=== PATIENT | female | born 1960 | race Caucasian/White ===

== ENCOUNTER 2025-06-10 15:15 | Outpatient (AMB) | payer OTHER, SELFPAY ==
--- NOTE | 2025-06-10 15:20 | MHC.OFFVIS ---
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 Since some of the surgery in 1920 07/31 she has had loud vocal tics and burps which she calls hiccups. These have gotten worse in the last year very frequent especially with she is nervous or worked up or talking about it. When she is relaxed on her recliner they decrease in frequency and they stopped completely for 6-7 hours once she falls asleep. They start as soon as she gets up. 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 She finds it embarrassing. She has been tried on gabapentin, tizanidine and baclofen for symptomatic treatments without success. She takes citalopram for her depression. [facility] Medical History (Updated 06/10/25 @ 15:42 by Marry Bob MD) Hiccough Review of Systems Neuro Details: Frequent vocal tics and burping versus hiccups Physical Exam Neuro Other: ?Mini Mental Status Exam Level of Consciousness:?Alert.? Orientation:?Knows correct year, month, date, day and season.?Knows correct city, county and state. Knows correct location and floor.? Registration:?Able to register 3 objects.? Attention:?Serial 7's performed accurately.? Recall:?Able to recall 3 out of 3 objects.? Language:?Normal spontaneous speech, fluency, repetition, naming, comprehension, reading, and writing.? Total Score:?30/30.? Neurological Abnormal neurological findings:??Frequent loud vocal tics with occasional burping tics, or a combination of the 2, sometimes associated with lower facial grimacing that gets suppressed by distraction.? Mental Status:?Alert and oriented X 3.?Normal attention, orientation, memory, and affect.? Cranial Nerves:?Pupils are equal, round and reactive to light. Fundoscopy shows normal disc bilaterally. External occular muscles are intact. Visual foreman are full, no ptosis. Face is symmetrical, no facial weakness or droop. Facial sensations are normal. Tongue protrudes in midline. Palate elevates symmetrically. Shoulder shrugging is normal.? Motor Examination:?Normal muscle tone, bulk and strength.?No atrophy or fasciculations.?No drift of the extended upper extremities.?Deep tendon reflexes are 2+.?Plantars are flexor.? Motor Strength:? Proximal Muscles (out of 5):?5 Distal Muscles (out of 5):?5 Neck Flexors (out of 5):?5 Neck Extensors (out of 5):?5 Deltoid (out of 5):?5 Biceps (out of 5):?5 Triceps (out of 5):?5 Serratus Anterior (out of 5):?5 Wrist Extensors (out of 5):?5 APB (out of 5):?5 Finger Spread (out of 5):?5 Ileopsoas (out of 5):?5 Quadriceps (out of 5):?5 Hamstrings (out of 5):?5 Tibialis Anterior (out of 5):?5 Peronei (out of 5):?5 EDB (out of 5):?5 Gastrocnemius (out of 5):?5 Straight Leg Raising:?90 degrees.? Sensory Exam:?Normal light touch, temperature, pinprick, vibration and joint-position sensations.?Rhomberg sign is absent.? Coordination:?No ataxia,?no titubation,?bloxqk-mz-jifa, debu-qvxv-vprl test, and rapid alternating movements were normal.? Gait Exam:?Within normal limits.? Cerebellar Signs:?Nmqgnd-eh-riob and xbbh-vb-lzle is normal.?No dysdiadochokinesia.? Extrapyramidal System:?No tremor or?rigidity, normal facial expressions.?No bradykinesia. No bradyphrenia. Normal arm swing and posture. No propulsion or retropulsion.? Speech:?Normal,?no dysphasia or dysarthria.? General Examination GENERAL APPEARANCE:??normal,?in no acute distress?,?normal,?in no acute distress.? HEAD:??normocephalic,?atraumatic.? EYES:??sclera non-icteric,?conjunctiva clear.? EARS:??auditory canal clear,?tympanic membrane intact, clear.? NOSE:??no lesions.? ORAL CAVITY:??gums normal,?mucosa moist,?no lesions.? THROAT:??clear.? NECK/THYROID:??no cervical lymphadenopathy,?thyroid normal,?neck supple, full range of motion,?no carotid bruit.? SKIN:??no rashes,?no significant birthmarks.? HEART:??S1, S2 normal,?no murmurs?,?S1, S2 normal,?no murmurs.? LUNGS:??clear anteriorly and posteriorly?,?clear anteriorly and posteriorly.? CHEST:??no gross rib deformity,?clear to auscultation.? BACK:??normal exam of spine.? MUSCULOSKELETAL:??normal.? EXTREMITIES:??no edema?,?no edema.? PERIPHERAL PULSES:??normal.? PSYCH:??alert, oriented,?cognitive function intact,?cooperative with exam?,?alert, oriented,?cognitive function intact,?cooperative with exam.? Assessment & Plan Assessment & Plan (1) Motor and vocal tic disorder: Code(s): F95.2 - Tourette's disorder Category: Medical Plan Stop Baclofen and Gabapentin. Start Clonidine 0.1mg and Haloperidol 0.5 mg and titrate up the dose in a week to 2 of each at bedtime. Call in 2-3 weeks to let us know what impact it has had on her tics Medications: New haloperidol 0.5 mg orally 1 tab hs for 1 week then 2 hs; 60 tabs 3RF clonidine HCl 0.1 mg orally 1 hs for 1 week then 1 bid; 60 tabs 3RF Coding Level of Care Code New Pt Level 5 (25887) Diagnoses Motor and vocal tic disorder F95.2
--- OUTSIDE RECORDS SUMMARY | 2025-06-10 16:57 | XMS_ITS | Encounter Summary ---
Author Organization [facility] Address [address] [place] [address] Care Team Providers Care Cad Technician Name Role Phone Gio Muñoz Primary Care Provider [phone] Encounter Details Date Type Department Care Team (Late st Contact Info) Description 09/25/[address] [facility] Interventional Radiology [address] [place] [address] Nida Culp MD [address] [place] [id number] Social History Tobacco Use Types Packs/Day Years Used Date Smoking Tobacco: Never Smokeless Tobacco: Never Comments:: Alcohol Use Standard Drinks/Week Comments Not Currently 0 (1 standard drink = 0.6 oz pur e alcohol) Comments No Sex and Gender Information Value Date Recorded Sex Assigned at Female 08/03/2020 9:46 AM EST Legal Sex Female 6:54 PM EDT Gender Identity Female 08/03/2020 9:46 AM EST Sexual Orientation Straight 08/03/2020 9: 46 AM EST documented as of this encounter Plan of Treatment Not on file documented as of this encounter Visit Diagnoses Not on filedocumented in this encounter Care Teams Cad Technician Relationship Specialty Start Date End Date Gio Muñoz [address] [facility] [address] [place] [phone] PCP - General 01/26/17 documented as of this encounter
--- OUTSIDE RECORDS SUMMARY | 2025-06-10 16:58 | XMS_ITS | Clinical Summary ---
Author Organization [facility] Address [address] [place] [address] Care Team Providers Care Tank Truck Engine Mechanic Name Role Phone Gio Muñoz Primary Care Provider Allergies No known active allergies Medications chlorthalidone (HYGROTEN) 25 mg tablet Take 25 mg by mouth daily. Active citalopram (CeleXA) 20 mg tablet Take 20 mg by mouth daily. Active melatonin tablet Take 10 mg by mouth nightly. Active fluticasone (FLONASE) 50 mcg/actuation nasal spray Administer 1 spray into each nostril daily. Active vitamin D3 25 mcg (1,000 unit) capsule Take 4,000 Units by mouth once a day. Active bismuth subsalicylate (PEPTO BISMOL) 262 mg/15 mL suspension Take 15 mL by mouth every 6 hours as needed for indigestion. Active Lactobacillus acidophilus 2 billion cell tablet Take 1 tablet by mouth daily. Active lansoprazole (PREVACID) 30 mg capsule Take 15 mg by mouth daily. Active meloxicam (MOBIC) 15 mg tablet Take 15 mg by mouth daily. Active turmeric (CURCUMIN MISC) Take by mouth daily. Active magnesium 250 mg tablet Take 500 mg by mouth. Active fish oil 340-1,000 mg capsule Take 1,000 mg by mouth daily. Active biotin 1 mg capsule Take 1 tablet by mouth daily. Active vitamin E 400 unit capsule Take 400 Units by mouth once a day. Active milk thistle 150 mg capsule Take by mouth. Acti ve simethicone (MYLICON) 80 mg chewable tablet Chew and swallow 80 mg by mouth every 6 hours as needed for flatulence. Active hydrocortisone 2.5% cream 1 Active acetaminophen (TYLENOL) 325 mg tablet Take 2 tablets (650 mg total) by mouth every 6 hours. 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/2018): Added automatically from request for surgery [id number] Foot pain 12/14/2017 Plantar fasciitis 12/14/2017 Hyperplastic polyp of stomach 04/20/2017 Colon polyp 04/20/2017 Iron deficiency anemia due to chronic blood loss 04/07/2017 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 Iron deficiency anemia 05/18/2015 Immunizations Immunization Administration Dates Next Due Covid-19, Pfizer, mRNA, O'Brien valent, PF 30 mcg/0.3 mL dose (for ages 12 and older) 11/25/2020,11/04/2020 Family History Medical History Relation Name Comments Heart disease Father Hypertension Father Stroke Father Cancer Mother Lung cancer Mother Relation Name Status Comments Father Alive CABG x 3 Mother Son Other mild PJS Social History Tobacco Use Types Packs/Day Years Used Date Smoking Tobacco: Never Smokeless Tobacco: Never Comments:: Alcohol Use Standard Drinks/Week Comments Not Currently 0 (1 standard drink = 0.6 oz pur e alcohol) maybe one a year Comments No Sex and Gender Information Value Date Recorded Sex Assigned at Female 08/03/2020 9:46 AM EST Legal Sex Female 6:54 PM EDT Gender Identity Female 08/03/2020 9:46 AM EST Sexual Orientation Straight 08/03/2020 9: 46 AM EST Last Filed Vital Signs Vital Sign Reading Time Taken Comments Blood Pressure 135/90 10/22/2021 11:37 AM EDT Pulse 83 10/22/2021 11:37 AM EDT Temperature 36.9 C (98.4 F) 10/22/2021 11:37 AM EDT Respiratory Rate 16 10/22/2021 11:37 AM EDT Oxygen Saturation 95% 10/22/2021 11:37 AM EDT Inhaled Oxygen Concentration - - Weight 89.6 kg (197 lb 8.5 oz) 10/18/2021 6:48 A M EDT Height 157.5 cm (5' 2 ) 10/18/2021 6:48 AM EDT Body Mass Index 36.13 10/18/2021 6:48 AM EDT Plan of Treatment Health Maintenance Due Date Last Done Comments Cervical Cancer Screening 1960 HIV Screening 1960 HPV and Pap Smear 1960 Pap Smear 1960 Mammogram 2001 Pneumococcal Vaccine: 50+ Years (1 of 1 - PCV) 2011 Colonoscopy 04/11/2022 04/11/2019, 09/2018, 04/11/2019, Additional history exists Alcohol/Substance Use Screening 07/10/2024 Influenza Vaccine (#1) 2025 , 02/29/2020, 04/19/2018, Additional history exists COVID-19 Vaccine (3 - season) 2025 11/25/2020, 11/04/2020 Gastroscopy (EGD) 10/03/2025 10/04/2023, , 08/06/2020, Additional history exists DTaP,Tdap,and Td Vaccines (4 - Td or Tdap) 03/30/2031 03/30/2021, 11/28/2017, 04/21/2011, Additional history exists RSV Vaccine (60+ years old and patients) (1 - 1-dose 75+ series) 2036 Zoster Vaccines Completed 03/30/2021, 04/10, 02/26/2019, Additional history exists Hepatitis B Vaccines Aged Out No long er eligible based on patient's age to complete this topic Procedures * Due to [place] state law, this organization might not be sharing negative HIV tests. Procedure Name Priority Date/Time Associated Diagnosis Comments HM UPPER ENDOSCOPY (EGD EXTERNAL) 10/04/2023 COLONOSCOPY 04/11/2019 from Last 3 Months or Most Recently Relevant to Health Maintenance Results * Due to [place] state law, this organization might not be sharing negative HIV tests. * HM UPPER ENDOSCOPY (EGD EXTERNAL) (10/04/2023) 10/04/2023 us Onbase Scan [facility] Final Resu lt * COLONOSCOPY (04/11/2019) Narrative Procedure Note Cortez Mosquera MD - 04/11/2019 3:14 PM EDT Gastroenterology Patient Name: Mariel Malone Procedure Date: 04/11/2019 3:14 PM Date of : 1960 Admit Type: Outpatient Age: 58 Room: [place] [address] Gender: Female Note Status: Finalized Attending MD: Cortez Mosquera MD Procedure: Colonoscopy Indications: High risk colon cancer surveillance: Personal history of familial adenomatous polyposis Comorbidities Providers: Cortez Mosquera MD, Coretta Osborne (Fellow), Patricia Galindo (Fellow) Referring MD: Gio Conte MD (Referring MD) Requesting Provider: Medicines: General Anesthesia Complications: No immediate complications. Estimated Blood Loss: Estimated blood loss: none. Procedure: After I obtained informed consent, the scope was passed under direct vision. Throughout the procedure, the patient's blood pressure, pulse, and oxygen saturations were monitored continuously. The Colonoscope was introduced through the anus and advanced to the cecum, identified by appendiceal orifice and ileocecal valve.The colonoscopy was performed without difficulty. Thepatient tolerated the procedure well. The quality of the bowel preparation was good. The bowel preparation used was CoLyte. Findings: The perianal and digital rectal examinations were normal. Pertinent negatives include normal sphincter tone. A 6 mm polyp was found in the descending colon. The polyp wassessile. The polyp was removed with a cold biopsy forceps. Resection and retrieval were complete. Seven sessile polyps were found in the sigmoid colon. The polyps were4 to 12 mm in size. These polyps were removed with a hot snare.Resection and retrieval were complete. A 6 mm polyp was found in the rectum. The polyp was sessile. Thepolyp was removed with a hot snare. Resection and retrieval werecomplete. Multiple sessile polyps were found in the sigmoid colon, descending colon, splenic flexure and ascending colon. The polyps were small in size. Polypectomy was not attempted. Impression: - One 6 mm polyp in the descending colon, removed witha cold biopsy forceps. Resected and retrieved. - Seven 4 to 12 mm polyps in the sigmoid colon, removed with a hot snare. Resected and retrieved. - One 6 mm polyp in the rectum, removed with a hotsnare. Resected and retrieved. - Multiple small polyps in the sigmoid colon, in the descending colon, at the splenic flexure and in the ascending colon. Resection not attempted. Recommendation: - Repeat colonoscopy date to be determined afterpending pathology results are reviewed for surveillance. - Await pathology results. - Telephone endoscopist for pathology results in 1week. Cortez Mosquera MD 04/11/2019 5:55:19 PM This report has been signed electronically. Number of Addenda: 0 Note Initiated On: 04/11/2019 3:14 PM us Cortez Mosquera MD PROVATION PROCEDURES Final Resu lt from Last 3 Months or Most Recently Relevant to Health Maintenance [place] [id number] [facility] Advance Directives Documents on File Type Date Recorded Patient Tobacco Roller Expl anation Health Care Proxy 09/29/2016 12:00 AM 08/30 Health Care Proxy 08/11/2016 12:00 AM Healt h Care Proxy * Full Code (Latest Code Status on File) Date Activated Date Inactivated Comments 10/18/2021 12:35 PM 10/22/2021 5:17 PM * Full Code Date Activated Date Inactivated Comments 10/18/2021 6:48 AM 10/18/2021 12:35 PM Care Teams Tank Truck Engine Mechanic Relationship Specialty Start Date End Date Gio Muñoz [address] [facility] [address] [place] [phone] PCP - General 01/26/17
--- OUTSIDE RECORDS SUMMARY | 2025-06-10 16:58 | XMS_ITS | Encounter Summary ---
Author Organization [facility] Address [address] [place] [address] Care Team Providers Care Employee Communications Manager Name Role Phone Gio Muñoz Primary Care Provider [phone] Encounter Details Date Type Department Care Team ([facility] st Contact Info) Description 09/07/2021 [facility] Message [facility] PB Revenue Cycle Management [address] [place] [id number] Mychart, Generic Provider [address] [place], [place] [id number] Payment Plan Social History Tobacco Use Types Packs/Day Years [...] on filedocumented in this encounter Care Teams Employee Communications Manager Relationship Specialty Start Date End Date Gio Muñoz [address] [facility] [address] [place] [phone] PCP - General 01/26/17 documented as of this encounter
--- OUTSIDE RECORDS SUMMARY | 2025-06-10 16:58 | XMS_ITS | Encounter Summary ---
Author Organization [facility] Address [address] [place] [address] Care Team Providers Care Stamping Bench Die Maker Name Role Phone Gio Muñoz Primary Care Provider [phone] Encounter Details Date Type Department Care Team (Late st Contact Info) Description 03/31/2020 Orders Only [facility] 2 Rad Act [address] [place] [address] Sai Knox MD [address] [place] [address] Social History Tobacco Use Types Packs/Day Years Used Date Smoking Tobacco: Never Smokeless Tobacco: Never Comments:: Alcohol Use Standard Drinks/Week Comments Yes 0 (1 standard drink = 0.6 oz pur e alcohol) socially Comments No Sex and Gender Information Value [...] on filedocumented in this encounter Care Teams Stamping Bench Die Maker Relationship Specialty Start Date End Date Gio Muñoz [address] [facility] [address] [place] [phone] PCP - General 01/26/17 documented as of this encounter
--- OUTSIDE RECORDS SUMMARY | 2025-06-10 16:58 | XMS_ITS | Continuity of Care Document ---
Author Organization [facility], Main Office Address [address] [facility] [address] [place] [phone] Care Team Providers Care Lawn Service Worker Name Role Phone GIO STARKEY Primary Care Provider GUICHO GRAFF Hematology/Oncology HOANG STALLWORTH Windmill Mechanic AMY ESPINOZA Breast Surgeon HUA WILKERSON General Surgeon BHAVNA GRAY Hematology/Oncology [phone] SYD BROOKS Oncology Rep Specialist [facility] Correctional Supply Supervisor EDMOND RUIZ Auto Accessories Installer JEREMY PEREZ Breast Surgeon SJ AGUIRRE Wrapper Layer ISMAEL PORTER Design Eng Assessment No assessment recorded. Plan of Treatment Reminders Order Date Submit Date Provider Last Modified By Organization Details Last Modified Time Details Appointments FOLLOW UP 2024 02:45P M Gio Starkey MD Not available Not available Not available Lab None record ed. Referral neurol ogist referr al 2024 025 tyshawn Alston MD, [address] [place] [address] Miguel Mustafa, [place], [address], 05/13/2025 13:48:56 Procedures None record ed. Surgeries None record ed. Imaging None record ed. Medication Orders gabape ntin 100 mg capsul e 2024 025 [id number], [address] [place], [address], 03/27/2025 16:35:46 diphen oxylat e-atro pine 2.5 mg-0.0 25 mg tablet 2024 025 [id number], [address] [place], [address], 03/27/2025 16:35:47 amlodi pine 2.5 mg tablet 2024 [id number] [address] [place], [address], 04/22/2025 16:10:42 Patient TargetsNo targets recorded. Patient Instructions Encounter Date Encounter Id Patient Instructions Last Modified By Organization Details Last Modified Time 03/27/2025 [id number] high blood pressure: care instructions awychowski Not available 03/27/2025 16:35:44 learning about high blood pressure awychowski Not available 03/27/2025 16:35:44 Reason for Referral Neurologist Referral for Chr onic hiccup Referring Physician: Gio Starkey, Family Medicine, Encounter Date: 03/27/2025 Problems Name Problem SNOMED Code Status Onset Date Resolution Date Notes Provider Name and Address Organization Details Recorded Time Hypercho lesterol emia 55397347 Active 9.20 - ascvd risk 4.3% [facility]ER[facility]NDO [facility], [facility] 2 11:33:56 Foot pain 13475359 Completed 03/02/2015 Gio Starkey MD [address] [facility] [address], [place], [address] , [facility] 3 14:47:22 Osteopen ia 298740560 Completed 03/21/2018 Gio Starkey MD [address] [facility] [address], [place], [address] , [facility] 8 08:11:10 Body mass index 30+ - obesity 570878277 Completed 02/25/2019 Gio Starkey MD [address] [facility] [address], [place], [address] , [facility] 5 09:16:34 Proteinu roas 28685472 Completed 09/08/2022 Gio Starkey MD [address] [facility] [address], [place], [address] , [facility] 3 14:48:29 Disorder of skin 37167926 Completed 02/25/2019 Gio Starkey MD [address] [address], [place], [address] , [facility] 9 15:42:08 Patient status finding [id number] Completed 201201/21/2014 RECORDED 03/07/20 13 9:11AM BY CAPRI SOL MA, MARRYATI ON/ADDMIKE Starkey MD [address] [facility] [address], [place], [address] , [facility] 6 22:20:54 Influenz a vaccine needed [id number] 06 Completed 201201/21/2014 RECORDED 03/07/20 13 9:11AM BY CAPRI SOL MA, SARAH ON/JEREMIAH Starkey MD [address] [facility] [address], [place], [address] , [facility] 6 22:20:54 Screenin g for malignan t neoplasm of breast Completed 201201/21/2014 RECORDED 03/07/20 13 9:11AM BY CAPRI SOL MA, SARAH ON/JEREMIAH Starkey MD [address] [facility] [address], [place], [address] , [facility] 6 22:20:54 Renewal of prescrip tion Completed 201201/21/2014 RECORDED 03/07/20 13 9:11AM BY CAPRI SOL MA, SARAH ON/JEREMIAH Starkey MD [address] [facility] [address], [place], [address] , [facility] 6 22:20:54 Pain of joint of wrist Completed 201201/21/2014 RECORDED 03/07/20 13 9:11AM BY CAPRI SOL MA, SARAH ON/JEREMIAH Starkey MD [address] [facility] [address], [place], [address] , [facility] 6 22:20:54 Patient status finding [id number] Completed 201202/17/2014 RECORDED 03/07/20 13 9:11AM BY CAPRI SOL MA, SARAH ON/JEREMIAH Starkey MD [address] [address], [place], [address] , [facility] 6 22:20:54 Renewal of prescrip tion Completed 201202/17/2014 RECORDED 03/07/20 13 9:11AM BY CAPRI SOL MA, SARAH ON/JEREMIAH Starkey MD [address] [address], [place], [address] , [facility] 6 22:20:54 Pain of joint of wrist 982900186 Completed 201202/17/2014 RECORDED 03/07/20 13 9:11AM BY CAPRI SOL MA, SARAH ON/JEREMIAH Starkey MD [address] [address], [place], [address] , [facility] 6 22:20:54 Child attentio n deficit disorder 367575321 Completed 201301/21/2014 STORY: JULIO CÉSAR BAUMAN; IMPRESSI ON: DOING WELL AND FOLLOWED BY PSYCH.; RECORDED 10/29/19 14 9:56AM BY GIO Willard MD, ANNOTATI ON/ADDEN DUM Gio Starkey MD [address] [facility] [address], [place], [address] , [facility] 6 22:20:54 Constipa tion 83286005 Active 2013 FERNANDO Johnson, [facility] 2 11:33:56 Adult health examinat ion Completed 201301/21/2014 IMPRESSI ON: IMMUNIZA TION STATUS UTD WILL SCREEN BASED ON RISK FACTORS. REGULAR DENTAL CARE AND SEATBELT USE ADVISED. DISTRACT ED DRIVING DISCUSSE D. ROUTINE SURVEY TECHNICIAN CARE AND COLONOSC OPY UTD.; RECORDED 10/29/19 14 9:17AM BY CAPRI SOL MA, ANNOTATI ON/ADDEN DUM Gio Starkey MD [address] [facility] [address], [place], [address] , [facility] 6 22:20:54 Gastroes ophageal reflux disease 876760911 Active 2013 FERNANDO Johnson, [facility] 2 11:33:56 Essentia l hyperten nixon 67069580 Active 2013 FERNANDO Johnson, [facility] 2 11:33:56 Anemia due to chronic blood loss 502590390 Active 2013 FERNANDO Johnson, [facility] 2 11:33:56 Obesity 058771734 Completed 201308/10/2016 IMPRESSI ON: POTENTIA L ADVERSE HEALTH CONSEQUE NCES DISCUSSE D AND UNDERSTO OD. INCREASE D PHYSICAL ACTIVITY AND HEALTHIE R DIETARY HABITS ADVISED. ; RECORDED 10/29/19 14 9:33AM BY CAPRI SOL MA, OFFICE VISIT Gio Starkey MD [address] [facility] [address], [place], [address] , [facility] 3 14:47:52 Disorder of bone and articula r cartilag e 364422349 Completed 201308/10/2016 DATE: 10/29/19 14; ; RECORDED 11/01/19 14 12:48PM BY GIO Willard MD, HISTORIC AL SUMMARY Gio Starkey MD [address] [facility] [address], [place], [address] , [facility] 7 15:24:03 Congenit al disease 42597393 Completed 201303/21/2018 IMPRESSI ON: FOLLOWED BY GI; RECORDED 10/29/19 14 9:33AM BY CAPRI SOL MA, OFFICE VISIT Gio Starkey MD [address] [facility] [address], [place], [address] , [facility] 8 08:13:12 All[facility]initis 84748525 [facility] 11:33:[facility] Heterozy gous thalasse rashida 75282856 Active 2013 [facility] 11:33:56 Child attentio n deficit disorder 203647206 Completed 201302/17/2014 STORY: JULIO CÉSAR BAUMAN; IMPRESSI ON: DOING WELL AND FOLLOWED BY PSYCH.; RECORDED 10/29/19 14 9:56AM BY GIO Willard MD, ANNOTATI ON/ADDEN DUM Gio Starkey MD [address] [facility] [address], [place], [address] , [facility] 6 22:20:54 Screenin g for malignan t neoplasm of cervix Completed 201303/02/2015 RECORDED 11/08/19 14 11:07AM BY MICHELLE TOBAR, HISTORIC AL SUMMARY Gio Starkey MD [address] [facility] [address], [place], [address] , [facility] 6 22:20:54 Swelling of limb 11918202 Completed 201302/25/2019 Gio Starkey MD [address] [facility] [address], [place], [address] , [facility] 9 15:41:51 Screenin g for malignan t neoplasm of breast Completed 201303/02/2015 RECORDED 11/13/19 14 1:04PM BY MICHELLE TOBAR, HISTORIC AL SUMMARY Gio Starkey MD [address] [facility] [address], [place], [address] , [facility] 6 22:20:54 Disorder of breast 79419981 Completed 201303/21/2018 RECORDED 11/15/19 14 9:20AM BY FERNANDO DELCID, HISTORIC AL SUMMARY Gio Starkey MD [address] [facility] [address], [place], [address] , [facility] 8 08:13:07 Mammogra phy abnormal 332808830 Active 2013 STORY: LEFT, S/P BX AND CLIP PLACEMEN T-FIBROC YSTIC DISEASE/ PASH; FERNANDO Johnson, [facility] 2 11:33:56 Breast lump 85024812 Completed 201308/10/2016 RECORDED 12/18/19 14 3:27PM BY GIO Willard MD, ANNOTATI ON/ADDEN DUM Gio Starkey MD [address] [facility] [address], [place], [address] , [facility] 7 15:25:07 Fibrocys tic disease of breast 12889034 Active 2013 FERNANDO Johnson, [facility] 2 11:33:56 Iron deficien cy anemia 09467241 Completed 201405/18/2015 Gio Starkey MD [address] [facility] [address], [place], [address] , [facility] 5 09:33:51 Neurocut aneous syndrome 43119247 Completed 201405/18/2015 FERNANDO Johnson, [facility] 2 11:33:56 Hepatiti s C antibody detected 239607132 Active 2016 FERNANDO Johnson, [facility] 2 11:33:56 Osteoart hritis of joint of hand 46267596 Active 2016 FERNANDO Johnson, [facility] 2 11:33:55 Iron deficien cy anemia due to blood loss 744568441 Completed 201611/25/2024 Gio Starkey MD [address] [facility] [address], [place], [address] , [facility] 5 09:33:38 Polyp of colon 27111648 [facility] 08:54:30 Gastric polyp 03636256 Active 2016 [facility] 08:54:30 Plantar fasciiti s 698096369 Completed 201709/08/2022 Gio Starkey MD [address] [facility] [address], [place], [address] , [facility] 3 14:47:59 Foot pain 75371496 Completed 201709/08/2022 Gio Starkey MD [address] [facility] [address], [place], [address] , [facility] 3 14:47:22 Bilatera l plantar fasciiti s [id number] 341496 Completed 201709/08/2022 Gio Starkey MD [address], [place], [address] , [facility] 3 14:44:05 Tendinit is of foot 621778537 Completed 201702/15/2018 sheryl corey Starkey MD [address], [place], [address] , [facility] 8 08:57:59 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 CatherineFERNANDO Gillette, [facility] 2 11:33:55 Osteoart hritis 083796910 Active 2017 FERNANDO Johnson, [facility] 2 11:33:56 Insomnia 136285070 Active 2018 FERNANDO Johnson, [facility] 2 11:33:56 Liver enzymes level above referenc e range 094616263 Completed 201804/06/2021 Gio Starkey MD [address] [facility] [address], [place], [address] , [facility] 1 13:00:07 Complain ing of - melena Completed 201909/08/2022 Gio Starkey MD [address], [place], [address] , [facility] 3 14:45:36 Excessiv e belching 456993193 Completed 201909/08/2022 Gio Starkey MD [address], [place], [address] , [facility] 3 14:47:12 Depressi ve disorder 89449588 Active 2019 FERNANDO Johnson, [facility] 2 11:33:55 Steatoti c liver disease 709930087 Active 2020 Catherine Bradley MA null, [facility] 2 11:33:56 Cholelit hiasis without obstruct ion 11764693 Active 2020 Catherine Bradley MA null, [facility] 2 11:33:56 Gallston e 836041753 Active 2020 aCtherine Bradley MA null, [facility] 2 11:33:56 Electroc ardiogra m abnormal 202782050 Active 2020 FERNANDO Johnson, [facility] 2 11:33:56 Mitral valve regurgit ation 77166176 Active 2020 trivial FERNANDO Johnson, [facility] 2 11:33:56 Intussus ception of colon 33105775 Completed 202109/08/2022 Gio Starkey MD [address], [place], [address] , [facility] 3 14:47:33 Osteopor osis 25801992 Active 2021 FERNANDO Johnson, [facility] 2 11:33:56 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, needs regular GI/pancr eatic cancer screenin gMarii Starkey MD [address], [place], [address] , [facility] 4 12:40:42 Obese class II 59082849968 4105 Completed 202109/08/2022 Gio Starkey MD [address], [place], [address] , [facility] 3 14:47:49 Adhesion of intestin e 55821463 Active 2021 Catherine Bradley MA null, [facility] 2 11:33:56 Iron deficien cy anemia 91606916 Completed 202111/25/2024 Gio Starkey MD [address], [place], [address] , [facility] 5 09:33:51 History of SARS-CoV -2 99282435239 1911541 Active 2021 Gio Starkey MD [address] [facility] [address], [place], [address] , [facility] 2 13:41:42 Ostomy patient problem 944495012 Completed 202111/25/2024 Gio Starkey MD [address], [place], [address] , [facility] 5 09:34:02 Small bowel obstruct ion 720417693 Completed 202109/08/2022 Gio Starkey MD [address], [place], [address] , [facility] 3 14:48:04 Abscess of liver 29076084 Completed 202111/25/2024 Gio Starkey MD [address], [place], [address] , [facility] 5 09:32:28 CLABSI - central line associat ed bloodstr eam infectio n 215189905 Completed 202109/08/2022 Gio Starkey MD [address], [place], [address] , [facility] 3 14:45:22 Total parenter al nutritio n Completed 202111/15/2023 Eriberto Mcknight PA-C [address] [facility] [address], [place], [address] , [facility] 4 16:52:59 Short bowel syndrome 51164744 Active 2021 Gio Starkey MD [address] [facility] [address], [place], [address] , [facility] 2 13:18:11 Ileostom y present 207285285 Active 2022 Gio Starkey MD [address] [facility] [address], [place], [address] , [facility] 3 11:33:33 History of liver disease 495362749 Active 2022 Gio Starkey MD [address] [facility] [address], [place], [address] , [facility] 3 14:43:40 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, in partial remissio n 07679935 Active 2023 Eriberto Mcknight PA-C [address] [facility] [address], [place], [address] , [facility] 4 17:00:36 Perioral dermatit is 497589806 Completed 202311/25/2024 Gio Starkey MD [address] [facility] [address], [place], [address] , [facility] 5 09:34:10 Chronic hiccup 580962765 Active 2024 Gio Starkey MD [address] [facility] [address], [place], [address] , [facility] 5 09:14:34 Body mass index 30+ - obesity 337187830 Active 2024 Gio Starkey MD [address] [facility] [address], [place], [address] , [facility] 5 09:16:34 Ailin wei 72991509 Completed 202411/25/2024 Gio Starkey MD [address] [facility] [address], [place], [address] , [facility] 5 09:33:36 Microcyt osis 079696497 Active 2024 Gio Starkey MD [address] [facility] [address], [place], [address] , [facility] 5 09:25:05 Problem Notes None recorded. Procedures Surgical History Date Name Laterality Status Provider Name and Address Organization Details Recorded Time 10/03 Date of Last Colonoscopy completed Paty smith MA [facility] 4 16:24:50 10/03 Egd diagnostic brush wash completed Eugenio Tim [facility] 4 10:05:25 10/03 Colonoscopy completed Gio Starkey MD [address] [facility] [address], [place], [address] , [facility] 4 12:39:35 02/07 injection of cortisone completed Paty smith MA [facility] 4 16:24:57 08/24 Date of Last Pap Smear completed Vee Tim [facility] 3 09:23:21 05/31 Most Recent Mammogram completed Vee Tim [facility] 3 15:09:51 03/15 laparotomy completed Gio Starkey MD [address] [facility] [address], [place], [address] , [facility] 2 12:47:38 03/03 laparotomy completed Gio Starkey MD [address], [place], [address] , [facility] 2 12:30:20 03/02 exploratory laparotomy completed Gio Starkey MD [address], [place], [address] , [facility] 2 22:02:40 02/28 Laparotomy completed Gio Starkey MD [address], [place], [address] , [facility] 2 06:44:48 10/18 small intestine excision completed Gio Starkey MD [address], [place], [address] , [facility] 2 20:58:31 10/18 Laparoscopy completed Gio Starkey MD [address], [place], [address] , [facility] 2 09:01:00 02/04 Small bowel endoscopy completed Justine Pena [facility] 1 15:00:08 10/27 Echo transthoracic completed Gio Starkey MD [address], [place], [address] , [facility] 1 20:43:58 08/06 esophagogastroduodenoscopy completed Joyce Pena [facility] 1 13:54:52 05/28 Mammogram screening completed Justine Pena [facility] 0 15:05:03 04/11 Colonoscopy & polypectomy completed Pedro Ch [facility] 0 11:22:14 10/18 MRI of bilateral breasts completed Marcos Ch [facility] 9 12:59:04 03/07 Most Recent Bone Density completed Capri Sol MA [facility] 9 15:14:53 03/07 Dxa bone density dinora vrt fx completed Jewels Sol MA [facility] 9 15:14:31 12/03 Breast Biopsy completed Gio Starkey MD [address] [facility] [address], [facility] [place], [address] , [facility] 9 06:32:08 07/10 Oophorectomy completed Paty smith MA [facility] 4 08:39:59 Imaging Results None recorded. Procedure Notes None recorded. Medical Equipment None Reported. Allergies Allergen ID Allergen Name Allergen Category Reaction Reaction Severity Criticality Documentation Date Start Date Code Code System Note Provider Name and Address Organization Details Recorded Time 4217 latex environme nt,medica tion Not available Not available Not available 01/21/20142012 40557 91 RxNorm FERNANDO Barnes [facility] 2 12:58:47 16466 polyethyl dot glycols medicatio n Not available Not available Not available 11/15/2023 8516 RxNorm FERNANDO Zelaya [facility] 4 16:13:34 Medications Name Sig Start Date Stop Date Status Note LastModified by Organization Details LastModified Time Prescript ion - Prior Authoriza tion Request 08/10 completed [facility]BA Not Available Not Available Not Available amoxicill in 500 mg capsule 03/11 completed Not Available Not Available Not Available magnesium 500 mg tablet Take 1 tablet every day by oral route. 11/15 completed Not Available Not Available Not Available potassium chloride ER 10 mEq capsule,e xtended release Take 1 capsule every day by oral route as directed for 30 days. 06/30 completed Not Available Not Available Not Available acetamino phen 325 mg tablet Take 650 mg by oral route. 11/15 completed Not Available Not Available Not Available doxycycli ne hyclate 100 mg capsule TAKE 1 CAPSULE BY MOUTH TWICE A DAY FOR 10 DAYS 11/15 completed Not Available Not Available Not Available loperamid e 2 mg capsule PLEASE SEE ATTACHED FOR DETAILED DIRECTIO NS 03/27 completed Not Available Not Available Not Available trazodone 50 mg tablet Take 50 mg by oral route. 03/11 completed Not Available Not Available Not Available azithromy yael 250 mg tablet 10/23 completed Not Available Not Available Not Available tizanidin e 4 mg tablet TAKE 1 TABLET BY MOUTH EVERY DAY AT BEDTIME NEEDED 11/15 completed Not Available Not Available Not Available sulfameth oxazole 400 mg-trimet hoprim 80 mg tablet TAKE 2 TABS BY MOUTH EVERY 12 HOURS X 7 DAYS 06/30 completed Not Available Not Available Not Available fluconazo le 400 mg/200 mL in sod. chloride( iso) intraveno us piggyback Infuse 200 mL every day by intraven ous route as directed . 06/30 completed Not Available Not Available Not Available docusate calcium 240 mg capsule DAILY NEEDED 03/10 completed Not Available Not Available Not Available meloxicam 15 mg tablet Take 1 tablet every day by oral route. 09/08 completed PRN Not Available Not Available Not Available ondansetr on HCl 4 mg tablet TAKE 1 TABLET BY MOUTH EVERY 6-8 HOURS NEEDED FOR 5 DAYS. 01/21 completed Not Available Not Available Not Available prednison e 20 mg tablet Take 2 tablets every day by oral route for 5 days. 02/15 completed Not Available Not Available Not Available diphenoxy late-atro pine 2.5 mg-0.025 mg tablet TAKE 2 TABLETS TWICE A DAY BY MOUTH NEEDED FOR 30 DAYS. 2024 active Not Available Not Available Not Avai lable amlodipin e 2.5 mg tablet TAKE 1 TABLET BY MOUTH EVERY DAY active Not Available Not Available No t Available potassium chloride ER 10 mEq tablet,ex tended release TAKE 1 TABLET BY MOUTH EVERY DAY 05/02 completed Not Available Not Available Not Available melatonin 3 mg tablet Take 10 mg by oral route. 11/15 completed Not Available Not Available Not Available chlorthal idone 25 mg tablet TAKE 1 TABLET BY MOUTH DAILY 2024 active Not Available Not Available Not Avai lable omeprazol e 40 mg capsule,d elayed release Take 40 mg by oral route. 03/11 completed Not Available Not Available Not Available acetamino phen 650 mg tablet Take 2 tablets every 8 hours by oral route as needed. 11/14 completed Not Available Not Available Not Available oxycodone -acetamin ophen 5 mg-325 mg tablet active Not Available Not Available Not Available erythromy yael 250 mg tablet Take 1 tablet twice a day by oral route for 30 days. 09/08 completed Not Available Not Available Not Available flaxseed oil 1,000 mg capsule Take 1 capsule every day by oral route. 11/15 completed Not Available Not Available Not Available amoxicill in 875 mg tablet 03/30 completed Not Available Not Available Not Available citalopra m 20 mg tablet TAKE 1 TABLET BY MOUTH DAILY 2024 active Not Available Not Available Not Avai lable metoclopr amide 5 mg tablet TAKE 1 TABLET BY MOUTH 4 TIMES A DAY FOR 14 DAYS 11/15 completed Not Available Not Available Not Available trazodone 100 mg tablet Take 1 tablet as needed by oral route at bedtime. 10/03 completed Not Available Not Available Not Available baclofen 10 mg tablet TAKE 1 TABLET BY MOUTH THREE TIMES A DAY DIRECTED active Not Available Not Available No t Available cephalexi n 500 mg capsule TAKE 1 CAPSULE BY MOUTH THREE TIMES A DAY FOR 5 DAYS 06/30 completed Not Available Not Available Not Available erythromy yael 5 mg/gram (0.5 %) eye ointment PLEASE SEE ATTACHED FOR DETAILED DIRECTIO NS 03/28 completed Not Available Not Available Not Available ferrous sulfate 325 mg (65 mg iron) tablet Take 1 tablet 3 times a day by oral route as directed . 05/02 completed Not Available Not Available Not Available esomepraz ole magnesium 40 mg capsule,d elayed release Take 15 mg by oral route. 03/30 completed Not Available Not Available Not Available bismuth subsalicy late 262 mg/15 mL oral suspensio n Take 15 mL every 6 hours by oral route. 06/30 completed Not Available Not Available Not Available lansopraz ole 30 mg capsule,d elayed release TAKE 1 CAPSULE BY MOUTH TWICE A DAY active Not Available Not Available No t Available ursodiol 300 mg capsule Take 1 capsule 3 times a day by oral route for 90 days. 05/02 completed on hold Not Available Not Available Not Available oxycodone 5 mg capsule Take 1 capsule every 4 hours by oral route as directed for 5 days. 11/15 completed Not Available Not Available Not Available nystatin- triamcino lone 100,000 unit/g-0. 1 % topical cream APPLY TO CORNERS OF MOUTH IN MORNING AND IN EVENING UNTIL IMPROVED , THEN 2-3X WEEKLY MAINTENA NCE active Not Available Not Available No t Available lansopraz ole 15 mg capsule,d elayed release Take 1 capsule every day by oral route. 03/11 completed Not Available Not Available Not Available Gas Relief Extra Strength 125 mg capsule Take 1 capsule every day by oral route for 15 days. 05/02 completed Not Available Not Available Not Available Drysol Dab-O-Mat ic 20 % topical solution APPLY TOPICALL Y TWICE A WEEK NEEDED. 11/15 completed Not Available Not Available Not Available simethico ne 125 mg chewable tablet TAKE 1 TABLET BY MOUTH FOUR TIMES A DAY NEEDED active Not Available Not Available No t Available hydrocort isone 2.5 % topical cream Apply 1 applicat ion every day by topical route as needed for 30 days. active Not Available Not Available No t Available mupirocin 2 % topical ointment APPLY A SMALL AMOUNT TO THE AFFECTED AREA BY TOPICAL ROUTE 2 TIMES PER DAY x 1-2 wks 02/25 completed Not Available Not Available Not Available gabapenti n 100 mg capsule TAKE 1 CAPSULE BY MOUTH THREE TIMES A DAY FOR 30 DAYS active Not Available Not Available No t Available Infed 50 mg/mL injection solution Inject 2000 mg as needed by injectio n route. active once yearly iron infusion Not Available Not Available Not Available ondansetr on 4 mg disintegr ating tablet Place 1 tablet as needed by oral route for 10 days. 06/30 completed Not Available Not Available Not Available fluticaso ne propionat e 50 mcg/actua tion nasal spray,fidel [facility] [place] 1 spray every day by nasal route as needed. 01/12 completed Not Available Not Available Not Available vitamin E 268 mg (400 unit) capsule Take 400 units by oral route. 11/15 completed Not Available Not Available Not Available loratadin e 10 mg tablet 1 twice a day for 5 days then daily 08/10 completed Not Available Not Available Not Available vitamin B complex capsule Take 1 capsule every day by oral route for 30 days. 2023 active Not Available Not Available Not Avai lable metoclopr amide 10 mg tablet Take 1 tablet twice a day by oral route as needed for 30 days. 11/14 completed Not Available Not Available Not Available simethico ne 80 mg chewable tablet Take 80 mg every 6 hours by oral route. 11/15 completed Not Available Not Available Not Available oxycodone 5 mg tablet 5 mg by oral route. 10/28 completed Not Available Not Available Not Available Benadryl 25 mg capsule Take 2 capsules as needed by oral route in the morning. 11/14 completed Not Available Not Available Not Available Adderall XR 15 mg capsule,e xtended release DAILY 09/12 completed RECORDED 10/17/19 13 7:36AM BY GIO Willard MD, MEDICATI ON AUTO-EMORY CTIVATIO N; Not Available Not Available Not Available Vitamin D3 25 mcg (1,000 unit) capsule Take 8 capsules every day by oral route. 07/01 completed Not Available Not Available Not Available Prempro 0.45 mg-1.5 mg tablet DAILY 08/10 completed Not Available Not Available Not Available lansopraz ole 30 mg delayed release,d isintegra ting tablet Take 1 tablet every day by oral route. 01/03 completed Not Available Not Available Not Available Compressi on Stockings 30-40 MMGHG DAILY 08/10 completed RECORDED 11/16/19 14 12:16PM BY IGO Willard MD, ANNOTATI ON/ADDEN DUM;PT ASKED FOR BLACK STOCKING S Not Available Not Available Not Available vitamin E phosphate 400 Unit capsule Take 1 capsule every day by oral route. 11/15 completed Not Available Not Available Not Available Lactaid Fast Act 9,000 unit tablet Take 1 tablet as needed by oral route. 08/10 completed Not Available Not Available Not Available magnesium 1 capsule po daily active Unsure of strength Not Available Not Available Not Available melatonin NEEDED 01/15 completed RECORDED 01/16/20 13 1:38PM BY GUSTAVO STRICKLAND MA, OFFICE VISIT; Not Available Not Available Not Available Fish Oil DAILY 03/10 completed Not Available Not Available Not Available flaxseed oil active Not Available Not Available Not Available biotin 1 po qd 03/30 completed Not Available Not Available Not Available Vitamin D3 active 2 tablets daily Not Available Not Available Not Available Multivita mins 1 tablet by mouth daily 2021 active Not Available Not Available Not Avai lable Vyvanse 30 mg capsule active Not Available Not Available Not Available lisdexamf etamine 20 mg capsule DAILY 10/28 completed RECORDED 10/29/19 14 9:34AM BY CAPRI SOL MA, OFFICE VISIT; Not Available Not Available Not Available diclofena c 1 % topical gel APPLY 2 GRAMS TO THE AFFECTED AREA(S) BY TOPICAL ROUTE 4 TIMES PER DAY 09/08 completed Not Available Not Available Not Available estradiol 10 mcg vaginal tablet TWO TIMES A WEEK 01/15 completed RECORDED 01/16/20 13 1:38PM BY GUSTAVO STRICKLAND MA, OFFICE VISIT; Not Available Not Available Not Available Xifaxan 550 mg tablet TAKE 1 TABLET BY MOUTH THREE TIMES DAILY FOR 14 DAYS 07/01 completed Not Available Not Available Not Available meloxicam 15 mg tablet-ir ritant and counter-i rritant no.2 topical gel Take 15 mg by miscell. route. 11/15 completed Not Available Not Available Not Available Suprep Bowel Prep Kit 17.5 gram-3.13 gram-1.6 gram oral solution 02/25 completed Not Available Not Available Not Available bismuth subsalicy late 524 mg/30 mL oral suspensio n in packet Take 15 mL every 6 hours by oral route. 11/15 completed Not Available Not Available Not Available Eye Drop Tears 1 drop every morning 11/15 completed Not Available Not Available Not Available turmeric root extract 500 mg capsule Take 1 capsule every day by oral route. 10/03 completed Not Available Not Available Not Available melatonin 10 mg tablet Take 1 tablet every day by oral route at bedtime. active Not Available Not Available No t Available Linzess 145 mcg capsule Take 145 ugs by oral route. 06/30 completed Not Available Not Available Not Available Linzess 290 mcg capsule 290 ugs by oral route. 11/11 completed Not Available Not Available Not Available biotin 1 mg capsule Take 1 {tbl} by oral route. 11/15 completed Not Available Not Available Not Available Lactobaci llus acidophil us 2 billion cell tablet Take 1 {tbl} by oral route. 12/10 completed Not Available Not Available Not Available L.acidoph ilus-L.pl antarum-B .animalis -B.longum 2 billion cell capsule Take 1 capsule every day by oral route. 11/15 completed Not Available Not Available Not Available Acidophil us Probiotic Blend 1 capsule po daily active Not Available Not Available No t Available glucosam 500 mg-chondr oit 66.7 mg-msm 500 mg-boron 2 mg-hyalur o tablet Take 1 tablet every day by oral route. 03/11 completed Not Available Not Available Not Available Fish Oil 1,000 mg (120 mg-180 mg) capsule Take 1 capsule every day by oral route. 03/27 completed Not Available Not Available Not Available Readi-Cat 2 2 % (w/v) oral suspensio n DRINK 1ST BOTTLE [address] SCAN AND DRINK 2ND BOTTLE 90MIN PRIOT TO CT SCAN 06/30 completed Not Available Not Available Not Available Shingrix (PF) 50 mcg/0.5 mL intramusc ular suspensio n, kit 03/11 completed Not Available Not Available Not Available turmeric 400 mg capsule Take 1 capsule every day by oral route. 11/15 completed Not Available Not Available Not Available turmeric 500 mg 1 daily 03/30 completed Not Available Not Available Not Available Daily Fiber 0.4 gram capsule Take 7 capsules every day by oral route as directed . active Take 2 capsules TID and 1 at bedtime Not Available Not Available Not Available acetamino phen 325 mg chewable tablet Chew 2 tablets every 6 hours by oral route as directed . 11/15 completed Not Available Not Available Not Available Afluria Qd (36 mos up)(PF)60 mcg (15 mcg x4)/0.5 mL IM syringe ADM 0.5ML IM UTD 03/11 completed Not Available Not Available Not Available Vitals Date Recorded Body height Body mass index (BMI) Body weight Oxygen saturation Heart rate Body temperature Systolic And Diastolic Systolic And Diastolic Provider Name and Address Organization Details Last Updated DateTime 5 157.48 cm 35.5 kg/m2 06592.6 2 g 98 % 82 /min 97.5 [degF] 165/93 mm[Hg] 163/82 mm[Hg] Julianna Dickerson MA [facility] 5 15:25:18 Social History Question Answer Notes LastModified by Organizat ion Details LastModified Time Tobacco Smoking Status Never Smoker Not Available [employer] 05/12/2020 03:36:38 Do You Have An Advance Directive? Yes HCP/ -Simin rles Information not available 05/02/2022 Is Blood Transfusion Acceptable In An Emergency? Yes [id number] Information not available 05/12/2020 What Is Your Level Of Caffeine Consumption? Occasional 1 Tea Daily Information not available 11/15/2023 How Much Tobacco Do You Chew? None [id number] Information not available 05/12/2020 What Type Of Diet Are You Following? REGULAR Not Much Fruits/vegg ies Information not available 11/15/2023 Which Illicit Or Recreational Drugs Have You Used? None [id number] Information not available 05/12/2020 Live Alone Or With Others? With Others (Brian), And 1 Dog Information not available 05/02/2022 Do You Take Precautions To Prevent Distracted Driving? Yes Information not available 03/02/2015 How Often Do You Need To Have Someone Help You When You Read Instructions, Pamphlets, Or Other Written Material From Your Doctor Or Pharmacy? Never Information not available 03/02/2015 Have You Served In The ? No Information not available 08/10/2016 Have You Or Anyone In Your Household Had Any Of The Following Symptoms In The Last 14 Days: Sore Throat, Cough, Chills, Body Aches For Unknown Reasons, Shortness Of Breath For Unknown Reasons, Loss Of Smell, Loss Of Taste, Fever At Or Greater Than 100 Degrees Fahrenheit? No [email or web address] Information not available 03/11/2020 Are You Or Anyone In Your Household A Health Care Provider Or Emergency Responder? No [email or web address] Information not available 03/11/2020 To The Best Of Your Knowledge Have You Been In Close Proximity To Any Individual Who Tested Positive For COVID-19? No [email or web address] Information not available 03/11/2020 *AWV ONLY* Are You Presently Prescribed Opioid Medication By PCP Or Specialist? If YES -Provider Assess The Benefit For Other, Non-opioid Pain Therapies Instead, Even If The Patient Does Not Have OUD But Is Possibly At Risk. No Information not available 03/30/2021 Have You Recently Traveled To A COVID-19 High Risk Area Or Gathering In The Last 10 Days? No Information not available 03/30/2021 What Was The Date Of Your Most Recent Tobacco Screening? 11/15/2024 [email or web address] Information not available 11/15/2024 How Many Children Do You Have? 1 Presley [id number] Information not available 05/12/2020 Do You Use Protection During Sex? No [id number] Information not available 05/12/2020 Do You Use Your Seat Belt Or Car Seat Routinely? Yes Information not available 03/30/2021 Seat Belts Used Routinely Yes Information not available 05/02/2022 Are You Sexually Active? No Brian menezes Information not available 11/15/2023 Smoke Alarm In Home Yes Information not available 05/02/2022 Do You Have Smoke And Carbon Monoxide Detectors In Your Home? Yes Information not available 03/30/2021 At What Age Did You Start Smoking Tobacco? 1 [id number] Information not available 05/12/2020 Are You Passively Exposed To Smoke? No [email or web address] Information not available 01/03/2018 How Much Tobacco Do You Smoke? No [id number] Information not available 05/12/2020 Do You Use Sunscreen Routinely? Yes [id number] Information not available 05/12/2020 How Many Years Have You Smoked Tobacco? 0 [id number] Information not available 05/12/2020 Sex: Unknown Functional Status Question Answer Note LastModified by Organizat ion Details LastModified Time Do you use any illicit or recreational drugs? No Information not available 11/15/2023 Do you or have you ever used any other forms of tobacco or nicotine? No Information not available 05/02/2022 What is your level of alcohol consumption? Occasional rare Information not available 11/15/2023 Do you or have you ever used smokeless tobacco? 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 YESWOREST Information not available 05/02/2022 Are you able to care for yourself independently? 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 Never used electronic cigarettes Information not available 05/02/2022 What is your exercise level? Moderate walking dog 20 minutes daily; uses stairs Information not available 11/15/2023 Mental Status None recorded. Family History Relationship Description Onset Age of this Age Resolved Age Notes LastModified by Organization Details LastModified Time Mother Malignant neoplasm of lung 63 [email or web address] Not available 02/15 09:04:32 Mother Osteoporosis awychowski Not rickie ilable 03/02/2015 11:14:26 Father Coronary arterioscler osis Not available 2021 12:48:26 Father Hypercholest erolemia awychowski Not available 03/02 11:14:26 Father Essential hypertension Not available 12:48:26 Maternal Grandmother Coronary arterioscler osis Not available 2021 12:48:26 Brother Well adult Not availabl e 05/02/2022 12:48:26 Brother Well adult Not availabl e 05/02/2022 12:48:26 Son Peutz-Jegher s syndrome Not available 05/02 12:48:26 Medical History Condition Response Anemia Y Arthritis Y Constipation Y Polyps Y Acid Reflux (GERD) Y GI Problems Y Depression Y Gynecological History Statement/Question Response Abnormal Pap Y Date of Last Pap Smear 08/24/2022 Date of Last Colonoscopy 10/04/2023 Most Recent Mammogram 05/31/2022 Most Recent Bone Density 03/07/2018 Obstetrics History GPAL:G 0 P 0 0 0 0 Immunizations Vaccine Type Date Status Note Provider Nam e and Address Organization Details Recorded Time zoster recombinant 9 completed FERNANDO Barnes, [facility] 01/21/2022 13:27:17 COVID-19, mRNA, LNP-S, PF, 30 mcg/0.3 mL dose 1 [facility] 14:23:22 COVID-19, mRNA, LNP-S, PF, 30 mcg/0.3 mL dose 1 completed FERNANDO Tello, [facility] 12/10/2021 14:23:22 Influenza, split virus, quadrivalent, PF 1 completed FERNANDO Tello, [facility] 12/10/2021 14:23:22 Influenza, MDCK, quadrivalent, PF 8 [facility] 14:23:22 Influenza, split virus, quadrivalent, PF 0 completed FERNANDO Tello, [facility] 12/10/2021 14:23:22 zoster recombinant 9 completed FERNANDO Tello, [facility] 12/10/2021 14:23:22 Tdap 8 [facility]10[facility]2021 14:23:22 Influenza, split virus, quadrivalent, PF 7 [facility]/10/2021 14:23:22 Td (adult), 2 Lf tetanus toxoid, preservative free, adsorbed 1 completed FERNANDO Barnes, [facility] 01/21/2022 13:27:18 Influenza, split virus, quadrivalent, PF 2 completed Catherine Bradley MA null, [facility] 06/30/2022 12:50:34 Influenza, split virus, quadrivalent, PF 3 completed Paty Ibrahim MA null, [facility] 11/15/2023 16:13:10 Influenza, split virus, trivalent, PF 4 completed Not Available [facility] 03/27/2025 15:14:13 Pneumococcal conjugate PCV21, polysaccharide TKH668 conjugate, PF 5 completed Justine castro, [facility] 12/17/2024 11:18:43 Tdap 1 completed Not Available [facility] 10/22/2021 17:17:55 Td (adult), 2 Lf tetanus toxoid, preservative free, adsorbed 1 completed Not Available [facility] 10/22/2021 17:17:55 Influenza, split virus, trivalent, preservative 3 completed Not Available [facility] 10/22/2021 17:17:55 Influenza, split virus, trivalent, preservative 3 completed Not Available [facility] 10/22/2021 17:17:55 Influenza, split virus, trivalent, PF 4 completed Not Available [facility] 07/27/2019 02:21:57 Past Encounters Encounter ID Performer Location Encounter Start Date Encounter Closed Date Diagnosis/Indication Diagnosis SNOMED-CT Code Diagnosis ICD10 Code Diagnosis IMO Codes Diagnosis Note [id number] Gio Starkey MD Main Office [address] [facility] [address] [facility] [place] [id number] 03/27/2025 15:11:21 03/27/2025 16:33:41 Chronic hiccup 523373570 R06.6 [id number] Some relief with baclofen but persistent and impactful on quality of life. Will see if adding low dose gabapentin helps and consult neurology for further guidance. Wonder if CCB for BP might also help with possible esophageal dysmotilit y component. Essential hypertension 64499686 I10 Poor control on diuretic alone. Will see if CCB helps with this and her intractabl e singultus. 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 Health Concerns Section Related Observation LastModified by Organization Detai ls LastModified Time None Recorded Concern Status LastModified by Organization Details LastModified Time None Recorded Payers Encounter Date Sequence Insurance Name Policy Number Policy Morales Covered Member ID Morales Member ID Guarantor Name 03/27/2025 1 [facility] [id number] Mariel Malone [id number] Mariel Malone Notes Date Note Type Note Provider Name and Address Organization Details Recorded Time 03/27/2025 text/html AnemiaReported b y PatientHPIFor context, patient reportsprevious hemoglobin: (11.5),previous hematocrit: (38.5), andlow iron. For associated symptoms, patient reportsnausea mildbut reportsno chest pain,no abdominal pain,no melena, andno blood in stool. For severity, patient reportsmicrocytic (mcv<80). For duration, patient reportsconstant. Hypertension F/UReported by PatientHPIFor lifestyle, patient reportsnot exercising regularly. For associated symptoms, patient reportsno dizziness,no lightheadedness,no chest pain,no shortness of breath,no palpitations,no edema, andno calf pain with exertion. For medications, patient reportstaking medications as directedandno side effects from medication.Is back on chlorthalidone. DiarrheaReported by PatientHPIFor quality, patient reportsintermittent. For severity, patient reportsmoderate. For duration, patient reportspresent for 1 month. For associated symptoms, patient reportsno abdominal pain.Has short bowel syndrome. Using lomotil PRN 64 y/o with short bowel and persistent hiccups presenting today after I tried to address this issue at her physical in November. I prescribed baclofen at that time with the plan that her GI specialist and possibly surgeon would address f/u or refer her to a specialist to help manage this condition that i have executive casino host in addressing. Unfortunately this did not happen and she remains on baclofen with some reported benefit but still having significant symptoms. Tends to occur with worry/high stress situations including work. Gio Starkey MD [address] [address], [place], [address], [facility] 04/14/2025 06:57:53 OBGyn Episode No OBEpisode recorded.
--- OUTSIDE RECORDS SUMMARY | 2025-06-10 16:58 | XMS_ITS | Encounter Summary ---
Author Organization [facility] Address [address] [place] [address] Care Team Providers Care Exchange Specialist Name Role Phone Gio Muñoz Primary Care Provider [phone] Encounter Details Date Type Department Care Team (Late st Contact Info) Description 03/19/2020 Orders Only [facility] [address] [place] [id number] Taco Ramirez MD [address] [place] [id number] Social History Tobacco Use Types Packs/Day Years [...] on filedocumented in this encounter Care Teams Exchange Specialist Relationship Specialty Start Date End Date Gio Muñoz [address] [facility] [address] [place] [phone] PCP - General 01/26/17 documented as of this encounter
--- OUTSIDE RECORDS SUMMARY | 2025-06-10 16:58 | XMS_ITS | Clinical Summary ---
Author Organization [facility] Address [address] [place] [address] Care Team Providers Care Spinner Box Name Role Phone Gio Muñoz MD Primary Care Provider [phone] Allergies Active Allergy Reactions Criticality Noted Date Comments No Active Allergies Medications Medication Sig Dispensed Refills Start Date End Date Status ibuprofen (ADVIL,MOTRIN) 600 MG tablet Take 1 tablet (600 mg total) by mouth as needed for pain. 0 Active Flaxseed, Linseed, (FLAX SEED OIL PO) Take by mouth. 0 Ac tive Lactobacillus (ACIDOPHILUS PO) Take by mouth. 0 Acti ve Melatonin 10 MG TABS Take 1 mg by mouth as needed. 0 Active lansoprazole (PREVACID) 30 MG capsule Take 1 capsule (30 mg total) by mouth daily. 0 Active citalopram (CELEXA) 10 MG tablet Take 2 tablets (20 mg total) by mouth daily. 0 Active iron dextran complex (INFED) 50 MG/ML injection Inject 40 mL (2,000 mg total) into the vein as needed. 0 Active vitamin D3 (VITAMIN D3) 25 MCG (1000 UT) tablet Take 5 tablets (5,000 Units total) by mouth daily. 0 Active Magnesium 500 MG TABS Take by mouth daily. 0 Active chlorthalidone (HYGROTON) 25 MG tablet Take 1 tablet (25 mg total) by mouth daily. 0 Active loperamide (IMODIUM) 2 MG capsule Take 1 capsule (2 mg total) by mouth 4 (four) times a day as needed for diarrhea. 0 Active FIBER PO Take by mouth. 0 Active tiZANidine (ZANAFLEX) 4 MG tablet Take 1 tablet (4 mg total) by mouth every night at bedtime. 0 Active Multiple Vitamin (MULTIVITAMIN ADULT PO) Take by mouth. 0 Active diphenhydrAMINE (BENADRYL) 25 mg capsule Take 1 capsule (25 mg total) by mouth every 6 (six) hours as needed for itching. 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 Depression 03/12/2020 Iron deficiency anemia due to chronic blood loss 04/07/2017 Family History Medical History Relation Name Comments Cancer Mother carcinoma Relation Name Status Comments Mother Social History Tobacco Use Types Packs/Day Years Used Date Smoking Tobacco: Never Smokeless Tobacco: Never Alcohol Use Standard Drinks/Week Comments Yes 0 (1 standard drink = 0.6 oz pur e alcohol) Sex and Gender Information Value Date Recorded Sex Assigned at Not on file Gender Identity Not on file Sexual Orientation Not on file Job Start Date Occupation Industry Not on file Not on file Not on file Last Filed Vital Signs Vital Sign Reading Time Taken Comments Blood Pressure 146/73 10/11/2022 3:00 PM EDT Pulse 91 10/11/2022 3:00 PM EDT Temperature 36.7 C (98.1 F) 10/11/2022 3:00 PM EDT Respiratory Rate - - Oxygen Saturation 91% 10/11/2022 3:00 PM EDT Inhaled Oxygen Concentration - - Weight 77.7 kg (171 lb 4.8 oz) 10/11/2022 3:00 P M EDT Height 157.5 cm (5' 2 ) 09/22/2022 9:19 AM EDT Body Mass Index 31.33 09/22/2022 9:19 AM EDT Plan of Treatment Health Maintenance Due Date Last Done Comments Hepatitis C Screening 1961 Depression Screening 1973 BMI Counseling 1979 Preventative Health Evaluation 1979 Cervical Cancer Screening (Pap Smear) 1982 Colon Cancer Screening (Colonoscopy) 2006 Breast Cancer Screening (Mammogram) 2011 COVID-19 Vaccine ( season) 2025 11/25/2020, 11/04/2020 Influenza Vaccine (#1) 2025 , 02/29/2020, 04/19/2018, Additional history exists DTap / Tdap / Td (4 - Td or Tdap) 03/30/2031 03/30/2021, 11/28/2017, 04/21/2011, Additional history exists RSV Adult > 60+ Yrs or (1 - 1-dose 75+ series) 2036 Shingrix-Zoster Vaccine Completed 04/30/2019, 02/26 Hepatitis B Vaccines Aged Out No long er eligible based on patient's age to complete this topic Pneumococcal Vaccine Aged Out No long er eligible based on patient's age to complete this topic RSV Ped < 20 months Aged Out No longe r eligible based on patient's age to complete this topic Care Teams Spinner Box Relationship Specialty Start Date End Date Gio Muñ[place] [address] [place] [id number] PCP - General Internal Medicine 04/04/17
--- OUTSIDE RECORDS SUMMARY | 2025-06-10 16:58 | XMS_ITS | Clinical Summary ---
Author Organization [facility] Address [facility] [address] [place] [phone] Phone Care Team Providers Care Aerosol Supervisor Name Role Phone Gio Muoñz MD Primary Care Provider Rahul Faria MD Unavailable [phone] Allergies No known active allergies Medications chlorthalidone (HYGROTON) 25 MG tablet Take 25 mg by mouth daily. 11/21/2022 Active magnesium 250 mg Tab Take 500 mg by mouth daily. Active melatonin 10 mg Tab Take 1 mg by mouth daily. Active citalopram (CELEXA) 20 MG tablet Take 20 mg by mouth daily. Active lansoprazole (PREVACID) 30 MG capsule Take 30 mg by mouth daily. Active Lactobacillus acidophilus 2 billion cell Tab Take 1 tablet by mouth daily. Active cholecalciferol, vitamin D3, 25 mcg (1,000 unit) capsule Take 10,000 Units by mouth daily. Active psyllium seed, with sugar, (FIBER ORAL) Take by mouth. Active MULTIVITAMIN ORAL Take by mouth. Active ascorbic acid (VITAMIN C ORAL) Take by mouth daily. Active diphenoxylate-at ropine (LOMOTIL) 2.5-0.025 mg per tablet 4 (four) times a day. Active VITAMIN B COMPLEX ORAL Take by mouth daily. Active baclofen (LIORESAL) 10 MG tablet Take 10 mg by mouth 3 (three) times a day. 01/03/2025 Active fluticasone propionate (FLONASE) 50 mcg/actuation nasal spray 1 spray by Nasal route as needed. 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 Discussed focus on elbow extension > flexion jeovany during sleep. Ddx includes cervical radiculopathy. Recommend EMG/NCS to confirm dx if severe / persistent sxs - referral deferred to PCP pending clinical course. Trigger middle finger of right hand 03/09/2023 Assessment & Plan (07/15/2024 2:17 PM EST): Sustained benefit following 04/2023 injection; repeat injection today as detailed in procedure note. No current indication for ongoing rheum-specific mgmt; happy to re-evaluate for any clinically significant change. I have advised her to request updated workplace occupational health evaluation. Assessment & Plan (04/22/2023 3:57 PM EDT): Persistent right middle trigger finger injected with 40 mg of triamcinolone. The triggering should resolve completely in about 4 to 5 days. Primary osteoarthritis involving multiple joints 03/09/2023 Assessment & Plan (10/30/2023 9:24 AM EDT): Osteoarthritis in multiple joints without current swelling or synovitis. Her symptoms are more prominent when she is active or when the weather is damp and cold. Suggested she continue with Advil as needed. She does not need an intramuscular steroid injection today but can call for an appointment when her symptoms worsen. Assessment & Plan (04/22/2023 3:57 PM EDT): Osteoarthritis in multiple joints with no swelling. Patient can take Tylenol 650 mg as needed. Encounters Date Type Department Care Team Description 04/11/2025 Transcribe Orders [facility] - Virtual Department [address] [place] [id number] Maxim Negron 04/02/2025 [facility]phone [facility] [address] [facility] [address] [place] [address] Watson Davila MD from Last 3 Months Family History Medical History Relation Comments Hyperlipidemia Brother Coronary artery disease Father Cancer Mother Hypertension Mother Thyroid disease Mother Relation Status Comments Brother Father Mother Social History Tobacco Use Types Packs/Day Years Used Date Smoking Tobacco: Never Smokeless Tobacco: Never Tobacco Cessation:Counseling Given: Not Answered Alcohol Use Standard Drinks/Week Comments Not Currently 0 (1 standard drink = 0.6 oz pur e alcohol) Child or Family Care Answer Date Record ed Do you have problems with on e of the following making it difficult for you to work, study, or receive health care? No 11/07/2024 Education Answer Date Recorded Are you interested in help w ith more adult education (for example, completing high school, GED, job training, learning the Portuguese language, technical skills, or developing parenting skills)? No 11/07/2024 Are you concerned about learning? Not on file 11/07/2024 No 11/07/2024 Yes 11/07/2024 Food Answer Date Recorded Within the past 6 months we worried whether our food would run out before we got money to buy more. Never True 11/07/2024 Within the past 6 months the food we bought just didn't last and we didn't have enough money to get more. Never True Residential Stability Answer Date Recor ded What is your housing situation today? I have rachel sing 11/07/2024 How many times have you move d in the past 12 months? Zero (I did not move) 11/07/2024 Paying for Meds Answer Date Recorded Do you have trouble paying for medicines? No 11/07/2024 Paying Utility Bills Answer Date Record ed Do you have trouble paying your heating or elect ricity bill? No 11/07/2024 Transportation Answer Date Recorded Has the lack of transportati on kept you from medical appointments or from getting medications? No 11/07/2024 Digital Access Answer Date Recorded No 02/27/2023 No 02/27/2023 Reliable internet access at home? Not on file 02/27/2023 Device with a working camera? Not on file Intimate Partner Violence Answer Date R ecorded Are you denied basic needs s uch as food, clothing, or medical care? No 01/30/2025 In the past 12 months have y ou been in a relationship with a person who hurts, threatens, or tries to control you? No 01/30/2025 Are you denied basic needs s uch as food, clothing, or medical care? No 01/30/2025 In the past 12 months have y ou been in a relationship with a person who hurts, threatens, or tries to control you? No 01/30/2025 Comments No Sex and Gender Information Value Date Recorded Sex Assigned at Female 08/30/2024 10:32 AM EST Legal Sex Female 4:06 PM EDT Gender Identity Female 08/30/2024 10:32 AM EST Sexual Orientation Straight 08/30/2024 10 :32 AM EST Last Filed Vital Signs Vital Sign Reading Time Taken Comments Blood Pressure 152/73 01/30/2025 3:50 PM EDT Pulse 77 01/30/2025 3:50 PM EDT Temperature 36.3 C (97.3 F) 01/30/2025 11:59 AM EDT Respiratory Rate 35 01/30/2025 3:50 PM EDT Oxygen Saturation 99% 01/30/2025 3:50 PM EDT Inhaled Oxygen Concentration - - Weight 88.5 kg (195 lb) 01/30/2025 11:59 AM EDT Height 157.5 cm (5' 2 ) 01/30/2025 11:59 AM EDT Body Mass Index 35.67 01/30/2025 11:59 AM EDT Plan of Treatment Health Maintenance Due Date Last Done Comments LIPID PANEL 1961 POTASSIUM LEVEL 1961 DEPRESSION SCREENING 1973 HIV ONE-TIME SCREENING (18-65 YEARS) 1979 PAP SMEAR 1982 SCREENING FOR DIABETES 1996 COLOGUARD 2006 COLONOSCOPY 2006 COLORECTAL CANCER SCREENING 2006 FIT TEST 2006 FOBT 2006 SIGMOIDOSCOPY 2006 VIRTUAL COLONOSCOPY 2006 MAMMOGRAM 05/28/2022 05/28/2020 INFLUENZA VACCINE (#1) 2025 , 04/10/2023, 05/02/2022, Additional history exists COVID-19 VACCINE (2024- season) 2025 11/25/2020, 11/04/2020 Adult Td,Tdap Booster 03/30/2031 03/30/2021 , 11/28/2017, 04/21/2011, Additional history exists RSV VACCINE (1 - 1-dose 75+ series) 2036 ZOSTER VACCINES Completed 04/30/2019, 02/26/2019 HEPATITIS C SCREENING Completed 10/19/2021, 022 PNEUMOCOCCAL VACCINES (50+ years) Completed 12/12/2024 SMOKING STATUS SCREENING (Once After 26 Yrs) Completed 01/30/2025 HEPATITIS A VACCINES Aged Out No long er eligible based on patient's age to complete this topic HIB VACCINES Aged Out No longer eligi ble based on patient's age to complete this topic MENINGOCOCCAL VACCINES (ACWY) Aged Out No longer eligible based on patient's age to complete this topic MENINGOCOCCAL VACCINES (B) Aged Out N o longer eligible based on patient's age to complete this topic Medical Devices Not on file [place] [address] [facility] [address] [place] [address] [facility] [address] [place] [id number] [facility] Care Teams Aerosol Supervisor Relationship Specialty Start Date End Date Gio Muñoz MD [address] [place] [phone] PCP - General Internal Medicine 02/27/23 Rahul Faria MD [address] [place] [id number] Gastroenterology 08/30/24 Additional Source Comments The information contained in this document represents components of the legal health record. It is not the complete legal health record.[facility]
--- OUTSIDE RECORDS SUMMARY | 2025-06-10 16:58 | XMS_ITS | Encounter Summary ---
Author Organization [facility] Address [address] [place] [address] Care Team Providers Care Pressfitter Name Role Phone Gio Muñoz Primary Care Provider [phone] Encounter Details Date Type Department Care Team ([facility] st Contact Info) Description 01/28/2022 Complete Innovationshart Message [facility] Revenue Cycle Management [address] [place] [id number] Mychart, Generic Provider [address] [place], [place] [phone] Payment Agreement Confirmation Social History Tobacco Use Types Packs/Day Years [...] on filedocumented in this encounter Care Teams Pressfitter Relationship Specialty Start Date End Date Gio Muñoz [phone] [facility] [address] [place] [phone] PCP - General 01/26/17 documented as of this encounter
--- OUTSIDE RECORDS SUMMARY | 2025-06-10 16:58 | XMS_ITS | Encounter Summary ---
Author Organization [facility] Address [address] [place] [address] Phone Care Team Providers Care Laborer Laboratory Name Role Phone Gio Muñoz MD Primary Care Provider Rahul Faria MD Unavailable [phone] Encounter Details Date Type Department Care Team (Late st Contact Info) Description 01/30/2025 Procedure Pass [facility] Endoscopy Department [address] [place] [address] Social History Tobacco Use Types Packs/Day Years Used Date Smoking Tobacco: Never Smokeless Tobacco: Never Alcohol Use Standard Drinks/Week Comments Not Currently [...] high school, GED, job training, learning the Czech language, technical skills, or developing parenting skills)? [...] Orientation Straight 08/30/2024 10 :32 AM EST documented as of this encounter Plan of Treatment Not on file documented as of this encounter Visit Diagnoses Not on filedocumented in this encounter Care Teams Laborer Laboratory Relationship Specialty Start Date End Date Gio Muñoz MD [address] [place] [address] PCP - General Internal Medicine 02/27/23 Rahul Faria MD [address] [place] [address] Gastroenterology 08/30/24 documented as of this encounter Additional Source Comments The information contained in this document represents components of the legal health record. It is not the complete legal health record.[facility]
--- OUTSIDE RECORDS SUMMARY | 2025-06-10 16:58 | XMS_ITS | Data Portability ---
Author Organization [facility], Main Office Address [address] [facility] [address] [place] [id number] Care Team Providers Care Dean Of Education Name Role Phone GIO STARKEY Primary Care Provider GUICHO GRAFF Hematology/Oncology HOANG STALLWORTH Mask Inspector AMY ESPINOZA Breast Surgeon HUA SIMENTAL General Surgeon BHAVNA GRAY Hematology/Oncology [phone] SYD BROOKS Senior Principal Software Engineer RAYWICK PODIATRY Groover Operator EDMOND RUIZ Cooky Packer JEREMY PEREZ Breast Surgeon SJ AGUIRRE Slicing Machine Feeder ISMAEL PORTER Administrative Accountant Assessment No assessment recorded. Plan of Treatment Reminders Order Date Submit Date Provider Last Modified By Organization Details Last Modified Time Details Appointments FOLLOW UP 2024 02:45P M Gio Starkey MD Not available Not available Not available Lab TSH, ultra- sensit porsha, serum 2024 025 [facility] (Centralized Electronic Ordering - All Locations), Patient Can Go To The Location Of Their Choice, [id number] 11/22/2024 06:13:07 CMP, serum or plasma 2024 025 [facility] (Centralized Electronic Ordering - All Locations), Patient Can Go To The Location Of Their Choice, 11/22/2024 06:13:03 vitami n B6 + metabo lites panel, serum or plasma 2024 025 [facility] (Centralized Electronic Ordering - All Locations), Patient Can Go To The Location Of Their Choice, 11/22/2024 06:13:06 lipid panel, serum 2024 025 [facility] ([facility]ized Electronic Ordering - All Locations), Patient Can Go To The Location Of Their Choice, 11/22/2024 06:13:04 HbA1c (hemog lobin A1c), blood 2024 025 [facility] (Centralized [facility] Ordering - All Locations), Patient Can Go To The Location Of Their Choice, 11/22/2024 06:13:05 vitami n B12, serum 2024 025 [facility] ([facility]ized Electronic Ordering - All Locations), Patient Can Go To The Location Of Their Choice, 11/22/2024 06:13:08 vitami n D, 25-hyd shae, total, serum 2024 025 [facility] (Centralized Electronic Ordering - All Locations), Patient Can Go To The Location Of Their Choice, 11/22/2024 06:13:07 ferrit in, serum or plasma 2024 025 [facility] ([facility]ized [facility] Ordering - All Locations), Patient Can Go To The Location Of Their Choice, 11/22/2024 06:13:08 CBC w/ auto diff 2024 025 [facility] (Centralized Electronic Ordering - All Locations), Patient Can Go To The Location Of Their Choice, 11/22/2024 06:13:03 TIBC (total iron-b inding capaci ty), serum 2024 025 [facility] (Centralized Electronic Ordering - All Locations), Patient Can Go To The Location Of Their Choice, 11/22/2024 06:13:04 lipid panel, serum [id number] [facility] (Centralized Electronic Ordering - All Locations), Patient Can Go To The Location Of Their Choice, 11/18/2023 06:08:31 CMP, serum or plasma 2023 [facility]AD [facility] (Centralized Electronic Ordering - All Locations), Patient Can Go To The Location Of Their Choice, 11/18/2023 06:08:30 TSH, ultra- sensit porsha, serum 2023 [facility] ([facility] Ordering - All Locations), Patient Can Go To The Location Of Their Choice, 11/18/2023 06:08:33 HbA1c (hemog lobin A1c), blood 2023 [facility]AD [facility] ([facility]ized [facility] Ordering - All Locations), Patient Can Go To The Location Of Their Choice, 11/18/2023 06:08:32 vitami n D, 25-hyd shae, total, serum 2023 [facility], [address], [place], [address], 11/18/2023 06:08:33 ferrit in, serum or plasma 2023 [facility]AD [facility] ([facility]ized Electronic Ordering - All Locations), Patient Can Go To The Location Of Their Choice, 11/18/2023 06:08:34 CBC w/ auto diff 2023 [facility]AD [facility] (Centralized Electronic Ordering - All Locations), Patient Can Go To The Location Of Their Choice, 11/18/2023 06:08:29 TIBC (total iron-b inding capaci ty), serum 2023 SAAD [facility] (Centralized Electronic Ordering - All Locations), Patient Can Go To The Location Of Their Choice, 11/18/2023 06:08:32 Referral neurol ogist referr al 2024 025 [email or web address] Alston MD, [address] [place] [address] , [address], [place], [address], 05/13/2025 13:48:56 nutrit ionist /allegra shoemaker referr al 2024 025 [email or web address] Not available 11/15/2024 09:51:48 nutrit ionist /allegra shoemaker referr al 2023 024 [email or web address] Not available 11/16/2023 10:33:51 Procedures None record ed. Surgeries None record ed. Imaging None record ed. Medication Orders gabape ntin 100 mg capsul e 2024 025 [id number] [address] [place] [address], [address], 03/27/2025 16:35:46 diphen oxylat e-atro pine 2.5 mg-0.0 25 mg tablet 2024 025 [id number], [address] [place] [address], [address], 03/27/2025 16:35:47 amlodi pine 2.5 mg tablet 2024 025 [id number] [address] [place] [address], [address], 04/22/2025 16:10:42 baclof en 10 mg tablet 2024 025 [place] [facility], [address] [place] [address], [facility] [address], [id number], 11/15/2024 16:17:23 diphen oxylat e-atro pine 2.5 mg-0.0 25 mg tablet 2024 025 [place] [facility], [address] [place] [address], [address], [place], [place], [id number], 11/15/2024 16:17:25 doxycy grubbs hyclat e 100 mg capsul e 2023 025 [id number], [address] [place], [address], 11/15/2024 08:44:59 bree nunez x capsul e 2023 024 junior Not available 07/01/2024 16:12:06 simeth icone 125 mg chewab le tablet 2023 024 [facility][id number], [address] [place], [address], 11/15/2023 17:02:16 Patient Targets Encounter Date Encounter Id Patient Goals Patient Target Last Modified By Organization Details Last Modified Time 11/15/2023 [id number] retirement goal of Blood Pressure 140 / 90 Not available Not available Not available terminal carman goal of Exercise level Not available Not available Not available retirement goal of Tobacco Smoking Status Not available Not available Not available retirement goal of Excess Body Weight Loss % 5 Not available Not available Not available Ongoing of LDL Direct yearly Not available Not available Not available Ongoing of LDL Direct <100 Not available Not available Not available 11/15/2023 [id number] Pt advised and agrees to eat a low salt low fat diet; to do moderate exercise (such as walking) 150 minutes per week; to limit alcohol intake (goal of 2 drinks per day or less for men or 1 for woman). and to monitor dietary sodium. Will monitor home blood pressures and bring readings to appointments. Patient preferences and goals incorporated in plan and updated/modified as needed to reflect progress toward goal. Pt agrees to follow low fat diet, avoid saturated fats , decrease carbohydrate intake to 45 - 50 gm per meal , pt agrees to develop a regular pattern of exercise such as walking 30 minutes a day 3 times a week, Pt will keep a record of exercise and activity level Patient preferences and goals incorporated in plan and updated/modified as needed to reflect progress toward goal. Pt advised and agrees to work on self-monitoring behaviors; begin an appropriate diet for weight loss (such as a low carbohydrate diet), to do moderate exercise (such as walking) for approximately 150 minutes per week; and to identify desirable and timely rewards that will reinforce achievement of specific weight loss goals. [email or web address] Not available 11/15/2023 17:02:02 Patient Instructions Encounter Date Encounter Id Patient Instructions Last Modified By Organization Details Last Modified Time 01/12/2023 [id number] high blood pressure: care instructions [email or web address] Not available 01/12/2023 16:10:43 learning about high blood pressure [email or web address] Not available 01/12/2023 16:10:43 learning about mood disorders [email or web address] Not available 01/12/2023 16:10:43 11/15/2023 [id number] well visit, women 50 to 65: care instructions [email or web address] Not available 11/15/2023 17:02:12 Starting a Weight-Loss Plan: Care Instructions [email or web address] Not available 11/15/2023 17:02:12 Nutrition Referral and Weight Management Follow-up Information [email or web address] Not available 11/15/2023 17:02:12 Medications (OTC, herbal therapies, supplements) reviewed and reconciled with patient and or caregiver, including potential side effects, drug interactions, instructions, and the consequences of not taking medication. Reviewed potential barriers to medication adherence, such as side effects from medication or cost of medication. [email or web address] Not available 11/15/2023 16:36:42 11/15/2024 [id number] hiccups: care instructions awychowski Not available 11/15/2024 09:36:03 well visit, women 50 to 65: care instructions [email or web address] Not available 11/15/2024 09:36:04 iron deficiency anemia: care instructions [email or web address] Not available 11/15/2024 09:36:03 Starting a Weight-Loss Plan: Care Instructions [email or web address] Not available 11/15/2024 09:36:04 Nutrition Referral and Weight Management Follow-up Information [email or web address] Not available 11/15/2024 09:36:04 03/27/2025 [id number] high blood pressure: care instructions awychowski Not available 03/27/2025 16:35:44 learning about high blood pressure awychowski Not available 03/27/2025 16:35:44 Reason for Referral 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/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 Refer ral for Body mass index 30+ - obesity Referring Physician: Eriberto Mcknight, Internal Medicine, Encounter Date: 11/15/2023 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/dietitian Refer ral for Body mass index 30+ - obesity Referring Physician: Gio Starkey, Family Medicine, Encounter Date: 11/15/2024 Neurologist Referral for Chr onic hiccup Referring Physician: Gio Starkey, Family Medicine, Encounter Date: 03/27/2025 Results Created Date Observation Date Name Description Value Unit Range Abnormal Flag Note LastModifiedBy Organization Detail LastModifiedTime 11/17/19 24 11/17/2023 CBC WITH DIFFE RENTI AL/PL ATELE T WBC 5.0 x10e3 /uL 3.4-10 .8 Not Available [facility] ([facility]) [address] [place], [address], 11/18/2023 06:08:29 11/17/19 24 11/17/2023 CBC WITH DIFFE RENTI AL/PL ATELE T RBC 5.79 x10e6 /uL 3.77-5 .28 above high normal Not Available [facility] ([facility]) [address] [place], [address], 11/18/2023 06:08:29 11/17/19 24 11/17/2023 CBC WITH DIFFE RENTI AL/PL ATELE T hemoglobin 11.8 g/dL 11.1-1 5.9 Not Available [facility] ([facility]) [address] [place], [address], 11/18/2023 06:08:29 11/17/19 24 11/17/2023 CBC WITH DIFFE RENTI AL/PL ATELE T hematocrit 38.3 % 34.0-4 6.6 Not Available [facility] ([facility]) [address] [place], [address], 11/18/2023 06:08:29 11/17/19 24 11/17/2023 CBC WITH DIFFE RENTI AL/PL ATELE T MCV 66 fL 79-97 below low normal Not Available [facility] ([facility]) [address] [place], [address], 11/18/2023 06:08:29 11/17/19 24 11/17/2023 CBC WITH DIFFE RENTI AL/PL ATELE T MCH 20.4 pg 26.6-3 3.0 below low normal Not Available [facility] ([facility]) [address] [place], [address], 11/18/2023 06:08:29 11/17/19 24 11/17/2023 CBC WITH DIFFE RENTI AL/PL ATELE T MCHC 30.8 g/dL 31.5-3 5.7 below low normal Not Available [facility] ([facility]) [address] [place], [address], 11/18/2023 06:08:29 11/17/19 24 11/17/2023 CBC WITH DIFFE RENTI AL/PL ATELE T RDW 18.0 % 11.7-1 5.4 above high normal Not Available [facility] ([facility]) [address] [place], [address], 11/18/2023 06:08:29 11/17/19 24 11/17/2023 CBC WITH DIFFE RENTI AL/PL ATELE T platelets 314 x10e3 /uL 150-45 0 Not Available [facility] ([facility]) [address] [place], [address], 11/18/2023 06:08:29 11/17/19 24 11/17/2023 CBC WITH DIFFE RENTI AL/PL ATELE T neutrophils 68 % not estab. Not Available [facility] ([facility]) [address] [place], [address], 11/18/2023 06:08:29 11/17/19 24 11/17/2023 CBC WITH DIFFE RENTI AL/PL ATELE T lymphs 19 % not estab. Not Available [facility] ([facility]) [address] [place], [address], 11/18/2023 06:08:29 11/17/19 24 11/17/2023 CBC WITH DIFFE RENTI AL/PL ATELE T monocytes 7 % not estab. Not Available [facility] ([facility]) [address] [facility], [place], [address], 11/18/2023 06:08:29 11/17/19 24 11/17/2023 CBC WITH DIFFE RENTI AL/PL ATELE T eos 3 % not estab. Not Available [facility] ([facility]) [address] [facility], [place], [address], 11/18/2023 06:08:29 11/17/19 24 11/17/2023 CBC WITH DIFFE RENTI AL/PL ATELE T basos 2 % not estab. Not Available [facility] ([facility]) [address] [facility], [place], [address], 11/18/2023 06:08:29 11/17/19 24 11/17/2023 CBC WITH DIFFE RENTI AL/PL ATELE T immature cells SEAL MIXING OPERATOR Not Available [facility] ([facility]) [address] [place], [address], 11/18/2023 06:08:29 11/17/19 24 11/17/2023 CBC WITH DIFFE RENTI AL/PL ATELE T neutrophils (absolute) 3.4 x10e3 /uL 1.4-7. 0 Not Available [facility] ([facility]) [address] [place], [address], 11/18/2023 06:08:29 11/17/19 24 11/17/2023 CBC WITH DIFFE RENTI AL/PL ATELE T lymphs (absolute) 1.0 x10e3 /uL 0.7-3. 1 Not Available [facility] ([facility]) [address] [place], [address], 11/18/2023 06:08:29 11/17/19 24 11/17/2023 CBC WITH DIFFE RENTI AL/PL ATELE T monocytes(ab solute) 0.4 x10e3 /uL 0.1-0. 9 Not Available [facility] ([facility]) [address] [facility], [place], [address], 11/18/2023 06:08:29 11/17/19 24 11/17/2023 CBC WITH DIFFE RENTI AL/PL ATELE T eos (absolute) 0.2 x10e3 /uL 0.0-0. 4 Not Available [facility] ([facility]) [address] [facility], [place], [address], 11/18/2023 06:08:29 11/17/19 24 11/17/2023 CBC WITH DIFFE RENTI AL/PL ATELE T baso (absolute) 0.1 x10e3 /uL 0.0-0. 2 Not Available [facility] ([facility]) [address] [facility], [place], [address], 11/18/2023 06:08:29 11/17/19 24 11/17/2023 CBC WITH DIFFE RENTI AL/PL ATELE T immature granulocytes 1 % not estab. Not Available [facility] ([facility]) [address] [facility], [place], [address], 11/18/2023 06:08:29 11/17/19 24 11/17/2023 CBC WITH DIFFE RENTI AL/PL ATELE T immature grans (abs) 0.1 x10e3 /uL 0.0-0. 1 Not Available [facility] ([facility]) [address] [place], [address], 11/18/2023 06:08:29 11/17/19 24 11/17/2023 CBC WITH DIFFE RENTI AL/PL ATELE T NRBC SEAL MIXING OPERATOR Not Available [facility] ([facility]) [address] [facility], [place], [address], 11/18/2023 06:08:29 11/17/19 24 11/17/2023 CBC WITH DIFFE RENTI AL/PL ATELE T hematology comments: SEAL MIXING OPERATOR Not Available [facility] ([facility]) [address] [facility], [place], [address], 11/18/2023 06:08:29 11/17/19 24 11/17/2023 COMP. METAB OLIC PANEL (14) glucose 94 mg/dL 70-99 Not Available [facility] ([facility]) [address] [facility] [place], [address], 11/18/2023 06:08:30 11/17/19 24 11/17/2023 COMP. METAB OLIC PANEL (14) BUN 13 mg/dL 8-27 Not Available [facility] ([facility]) [address] [facility] [place], [address], 11/18/2023 06:08:30 11/17/19 24 11/17/2023 COMP. METAB OLIC PANEL (14) creatinine 0.71 mg/dL 0.57-1 .00 Not Available [facility] ([facility]) [address] [facility], [place], [address], 11/18/2023 06:08:30 11/17/19 24 11/17/2023 COMP. METAB OLIC PANEL (14) eGFR 96 mL/mi n/1.7 3 >59 Not Available [facility] ([facility]) [address] [facility], [place], [address], 11/18/2023 06:08:30 11/17/19 24 11/17/2023 COMP. METAB OLIC PANEL (14) BUN/creatini ne ratio 18 12-28 Not Available [facility] ([facility]) [address] [facility] [place], [address], 11/18/2023 06:08:30 11/17/19 24 11/17/2023 COMP. METAB OLIC PANEL (14) sodium 138 mmol/ L 134-14 4 Not Available [facility] ([facility]) [address] [facility] [place], [address], 11/18/2023 06:08:30 11/17/19 24 11/17/2023 COMP. METAB OLIC PANEL (14) potassium 4.1 mmol/ L 3.5-5. 2 Not Available [facility] ([facility]) [address] [facility], [place], [address], 11/18/2023 06:08:30 11/17/19 24 11/17/2023 COMP. METAB OLIC PANEL (14) chloride 96 mmol/ L 96-106 Not Available [facility] ([facility]) [address] [facility], [place], [address], 11/18/2023 06:08:30 11/17/19 24 11/17/2023 COMP. METAB OLIC PANEL (14) carbon dioxide, total 22 mmol/ L 20-29 Not Available [facility] ([facility]) [address] [facility], [place], [address], 11/18/2023 06:08:30 11/17/19 24 11/17/2023 COMP. METAB OLIC PANEL (14) calcium 9.6 mg/dL 8.7-10 .3 Not Available [facility] ([facility]) [address] [facility], [place], [address], 11/18/2023 06:08:30 11/17/19 24 11/17/2023 COMP. METAB OLIC PANEL (14) protein, total 7.1 g/dL 6.0-8. 5 Not Available [facility] ([facility]) [address] [facility], [place], [address], 11/18/2023 06:08:30 11/17/19 24 11/17/2023 COMP. METAB OLIC PANEL (14) albumin 4.7 g/dL 3.9-4. 9 Not Available [facility] ([facility]) [address] [facility] [place], [address], 11/18/2023 06:08:30 11/17/19 24 11/17/2023 COMP. METAB OLIC PANEL (14) globulin, total 2.4 g/dL 1.5-4. 5 Not Available [facility] ([facility]) [address] [place], [address], 11/18/2023 06:08:30 11/17/19 24 11/17/2023 COMP. METAB OLIC PANEL (14) A/G ratio 2.0 1.2-2. 2 Not Available [facility] ([facility]) [address] [place], [address], 11/18/2023 06:08:30 11/17/19 24 11/17/2023 COMP. METAB OLIC PANEL (14) bilirubin, total 0.8 mg/dL 0.0-1. 2 Not Available [facility] ([facility]) [address] [place], [address], 11/18/2023 06:08:30 11/17/19 24 11/17/2023 COMP. METAB OLIC PANEL (14) alkaline phosphatase 72 IU/L 44-121 Not Available [facility] ([facility]) [address] [place], [address], 11/18/2023 06:08:30 11/17/19 24 11/17/2023 COMP. METAB OLIC PANEL (14) AST (SGOT) 34 IU/L 0-40 Not Available [facility] ([facility]) [address] [place], [address], 11/18/2023 06:08:30 11/17/19 24 11/17/2023 COMP. METAB OLIC PANEL (14) ALT (SGPT) 47 IU/L 0-32 above high normal Not Available [facility] ([facility]) [address] [place], [address], 11/18/2023 06:08:30 11/17/19 24 11/17/2023 LIPID PANEL HDL cholesterol 50 mg/dL >39 Not Available [facility] ([facility]) [address] [place], [address], 11/18/2023 06:08:31 11/17/19 24 11/18/2023 LIPID PANEL cholesterol, total 218 mg/dL 100-19 9 above high normal Not Available [facility] ([facility]) [address] [place], [address], 11/18/2023 06:08:31 11/17/19 24 11/18/2023 LIPID PANEL triglyceride s 536 mg/dL 0-149 above high normal Not Available [facility] ([facility]) [address] [place], [address], 11/18/2023 06:08:31 11/17/19 24 11/18/2023 LIPID PANEL VLDL cholesterol wong 86 mg/dL 5-40 above high normal Not Available [facility] ([facility]) [address] [place], [address], 11/18/2023 06:08:31 11/17/19 24 11/18/2023 LIPID PANEL LDL chol calc ([facility]) 82 mg/dL 0-99 Not Available [facility] ([facility]) [address] [place], [address], 11/18/2023 06:08:31 11/17/19 24 11/18/2023 LIPID PANEL comment: SEAL MIXING OPERATOR Not Available [facility] ([facility]) [address] [place], [address], 11/18/2023 06:08:31 11/17/19 24 11/18/2023 IRON AND TIBC iron bind.cap.(TI BC) 405 ug/dL 250-45 0 Not Available [facility] ([facility]) [address] [place], [address], 11/18/2023 06:08:32 11/17/19 24 11/18/2023 IRON AND TIBC UIBC 328 ug/dL 118-36 9 Not Available [facility] ([facility]) [address] [facility], [place], [address], 11/18/2023 06:08:32 11/17/19 24 11/18/2023 IRON AND TIBC iron 77 ug/dL 27-139 Not Available [facility] ([facility]) [address] [facility], [place], [address], 11/18/2023 06:08:32 11/17/19 24 11/18/2023 IRON AND TIBC iron saturation 19 % 15-55 Not Available [facility] ([facility]) [address] [facility], [place], [address], 11/18/2023 06:08:32 11/17/1911/17/2023 HEMOG LOBIN A1C hemoglobin A1C 5.6 % 4.8-5. 6 Predi abete s: 5.7 - 6.4 Diabe jay: >6.4 Glyce twan contr ol for adult s with diabe jay: <7.0 Not Available [facility] ([facility]) [address] [facility], [place], [address], 11/18/2023 06:08:32 11/17/1911/18/2023 VITAM IN D, 25-HY DROXY vitamin D, 25-hydroxy 26.7 NG/mL 30.0-1 00.0 below low normal Vitam in D defic iency has been defin ed by the Insti tute of Medic ine and an Endoc rine Socie ty pract ice guide line as a level of serum 25-OH vitam in D less than 20 ng/mL (1,2) . The Endoc rine Socie ty went on to furth er defin e vitam in D insuf ficie ncy as a level betwe en 21 and 29 ng/mL (2). 1. IOM (Inst itute of Medic ine). 2010. Dieta ry refer ence aspen es for calci um and D. Desmond zavala [place]: [facility] Press . 2. Holic k MF, Binodessa ey [place], Del off-F dilma i DILL, et al. Evalu ation , treat ment, and preve ntion of vitam in D defic iency : an Endoc rine Socie ty clini wong pract ice guide line. JCEM. 2010; 96(7) :1911 -30. Not Available [facility] ([facility]) [address] [place], [address], 11/18/2023 06:08:33 11/17/19 24 11/18/2023 TSH RFX ON ABNOR MAL TO FREE T4 TSH 3.930 uIU/m L 0.450- 4.500 Not Available [facility] ([facility]) [address] [place], [address], 11/18/2023 06:08:33 11/17/19 24 11/18/2023 JESSIKA TIN ferritin 82 NG/mL 15-150 Not Available [facility] ([facility]) [address] [place], [address], 11/18/2023 06:08:34 11/19/19 25 11/18/2024 CBC WITH DIFFE RENTI AL/PL ATELE T WBC 5.1 x10e3 /uL 3.4-10 .8 normal Not Available [facility] ([facility]) [address] [place], [address], 11/22/2024 06:13:03 11/19/1911/18/2024 CBC WITH DIFFE RENTI AL/PL ATELE T RBC 5.71 x10e6 /uL 3.77-5 .28 above high normal Not Available [facility] ([facility]) [address] [place], [address], 11/22/2024 06:13:03 11/19/19 25 11/18/2024 CBC WITH DIFFE RENTI AL/PL ATELE T hemoglobin 11.5 g/dL 11.1-1 5.9 normal Not Available [facility] ([facility]) [address] [facility], [place], [address], 11/22/2024 06:13:03 11/19/1911/18/2024 CBC WITH DIFFE RENTI AL/PL ATELE T hematocrit 38.5 % 34.0-4 6.6 normal Not Available [facility] ([facility]) [address] [facility], [place], [address], 11/22/2024 06:13:03 11/19/19 25 11/18/2024 CBC WITH DIFFE RENTI AL/PL ATELE T MCV 67 fL 79-97 below low normal Not Available [facility] ([facility]) [address] [facility], [place], [address], 11/22/2024 06:13:03 11/19/19 25 11/18/2024 CBC WITH DIFFE RENTI AL/PL ATELE T MCH 20.1 pg 26.6-3 3.0 below low normal Not Available [facility] ([facility]) [address] [facility], [place], [address], 11/22/2024 06:13:03 11/19/1911/18/2024 CBC WITH DIFFE RENTI AL/PL ATELE T MCHC 29.9 g/dL 31.5-3 5.7 below low normal Not Available [facility] ([facility]) [address] [facility], [place], [address], 11/22/2024 06:13:03 11/19/1911/18/2024 CBC WITH DIFFE RENTI AL/PL ATELE T RDW 18.3 % 11.7-1 5.4 above high normal Not Available [facility] ([facility]) [address] [place], [address], 11/22/2024 06:13:03 11/19/19 25 11/18/2024 CBC WITH DIFFE RENTI AL/PL ATELE T platelets 328 x10e3 /uL 150-45 0 normal Not Available [facility] ([facility]) [address] [facility], [place], [address], 11/22/2024 06:13:03 11/19/19 25 11/18/2024 CBC WITH DIFFE RENTI AL/PL ATELE T neutrophils 68 % not estab. normal Not Available [facility] ([facility]) [address] [facility], [place], [address], 11/22/2024 06:13:03 11/19/19 25 11/18/2024 CBC WITH DIFFE RENTI AL/PL ATELE T lymphs 20 % not estab. normal Not Available [facility] ([facility]) [address] [facility], [place], [address], 11/22/2024 06:13:03 11/19/19 25 11/18/2024 CBC WITH DIFFE RENTI AL/PL ATELE T monocytes 7 % not estab. normal Not Available [facility] ([facility]) [address] [facility], [place], [address], 11/22/2024 06:13:03 11/19/19 25 11/18/2024 CBC WITH DIFFE RENTI AL/PL ATELE T eos 3 % not estab. normal Not Available [facility] ([facility]) [address] [facility], [place], [address], 11/22/2024 06:13:03 11/19/19 25 11/18/2024 CBC WITH DIFFE RENTI AL/PL ATELE T basos 2 % not estab. normal Not Available [facility] ([facility]) [address] [facility], [place], [address], 11/22/2024 06:13:03 11/19/19 25 11/18/2024 CBC WITH DIFFE RENTI AL/PL ATELE T immature cells SEAL MIXING OPERATOR Not Available [facility] ([facility]) [address] [facility], [place], [address], 11/22/2024 06:13:03 05/12/20 25 11/18/2024 CBC WITH DIFFE RENTI AL/PL ATELE T neutrophils (absolute) 3.5 x10e3 /uL 1.4-7. 0 normal Not Available [facility] ([facility]) [address] [facility], [place], [address], 11/22/2024 06:13:03 11/19/19 25 11/18/2024 CBC WITH DIFFE RENTI AL/PL ATELE T lymphs (absolute) 1.0 x10e3 /uL 0.7-3. 1 normal Not Available [facility] ([facility]) [address] [place], [address], 11/22/2024 06:13:03 11/19/19 25 11/18/2024 CBC WITH DIFFE RENTI AL/PL ATELE T monocytes(ab solute) 0.4 x10e3 /uL 0.1-0. 9 normal Not Available [facility] ([facility]) [address] [place], [address], 11/22/2024 06:13:03 11/19/19 25 11/18/2024 CBC WITH DIFFE RENTI AL/PL ATELE T eos (absolute) 0.2 x10e3 /uL 0.0-0. 4 normal Not Available [facility] ([facility]) [address] [place], [address], 11/22/2024 06:13:03 11/19/19 25 11/18/2024 CBC WITH DIFFE RENTI AL/PL ATELE T baso (absolute) 0.1 x10e3 /uL 0.0-0. 2 normal Not Available [facility] ([facility]) [address] [place], [address], 11/22/2024 06:13:03 11/19/19 25 11/18/2024 CBC WITH DIFFE RENTI AL/PL ATELE T immature granulocytes 0 % not estab. Not Available [facility] ([facility]) [address] [facility], [place], [address], 11/22/2024 06:13:03 11/19/19 25 11/18/2024 CBC WITH DIFFE RENTI AL/PL ATELE T immature grans (abs) 0.0 x10e3 /uL 0.0-0. 1 Not Available [facility] ([facility]) [address] [facility], [place], [address], 11/22/2024 06:13:03 11/19/19 25 11/18/2024 CBC WITH DIFFE RENTI AL/PL ATELE T NRBC SEAL MIXING OPERATOR Not Available [facility] ([facility]) [address] [facility], [place], [address], 11/22/2024 06:13:03 11/19/19 25 11/18/2024 CBC WITH DIFFE RENTI AL/PL ATELE T hematology comments: SEAL MIXING OPERATOR Not Available [facility] ([facility]) [address] [facility], [place], [address], 11/22/2024 06:13:03 11/19/19 25 11/18/2024 COMP. METAB OLIC PANEL (14) glucose 90 mg/dL 70-99 normal Not Available [facility] ([facility]) [address] [facility] [place], [address], 11/22/2024 06:13:03 11/19/19 25 11/18/2024 COMP. METAB OLIC PANEL (14) calcium 9.7 mg/dL 8.7-10 .3 normal Not Available [facility] ([facility]) [address] [facility] [place], [address], 11/22/2024 06:13:03 11/19/19 25 11/18/2024 COMP. METAB OLIC PANEL (14) albumin 4.5 g/dL 3.9-4. 9 normal Not Available [facility] ([facility]) [address] [facility] [place], [address], 11/22/2024 06:13:03 11/19/19 25 11/18/2024 COMP. METAB OLIC PANEL (14) AST (SGOT) 49 IU/L 0-40 above high normal Not Available [facility] ([facility]) [address] [facility], [place], [address], 11/22/2024 06:13:03 11/19/19 25 11/19/2024 COMP. METAB OLIC PANEL (14) BUN 11 mg/dL 8-27 normal Not Available [facility] ([facility]) [address] [place], [address], 11/22/2024 06:13:03 11/19/19 25 11/19/2024 COMP. METAB OLIC PANEL (14) creatinine 0.65 mg/dL 0.57-1 .00 normal Not Available [facility] ([facility]) [address] [place], [address], 11/22/2024 06:13:03 11/19/19 25 11/19/2024 COMP. METAB OLIC PANEL (14) eGFR 99 mL/mi n/1.7 3 >59 normal Not Available [facility] ([facility]) [address] [place], [address], 11/22/2024 06:13:03 11/19/19 25 11/19/2024 COMP. METAB OLIC PANEL (14) BUN/creatini ne ratio 17 12-28 normal Not Available [facility] ([facility]) [address] [place], [address], 11/22/2024 06:13:03 11/19/19 25 11/19/2024 COMP. METAB OLIC PANEL (14) sodium 139 mmol/ L 134-14 4 normal Not Available [facility] ([facility]) [address] [place], [address], 11/22/2024 06:13:03 11/19/19 25 11/19/2024 COMP. METAB OLIC PANEL (14) potassium 4.0 mmol/ L 3.5-5. 2 normal Not Available [facility] ([facility]) [address] [facility] [place], [address], 11/22/2024 06:13:03 11/19/19 25 11/19/2024 COMP. METAB OLIC PANEL (14) chloride 98 mmol/ L 96-106 normal Not Available [facility] ([facility]) [address] [facility] [place], [address], 11/22/2024 06:13:03 11/19/19 25 11/19/2024 COMP. METAB OLIC PANEL (14) carbon dioxide, total 23 mmol/ L 20-29 normal Not Available [facility] ([facility]) [address] [facility] [place], [address], 11/22/2024 06:13:03 11/19/19 25 11/19/2024 COMP. METAB OLIC PANEL (14) protein, total 7.0 g/dL 6.0-8. 5 normal Not Available [facility] ([facility]) [address] [facility] [place], [address], 11/22/2024 06:13:03 11/19/19 25 11/19/2024 COMP. METAB OLIC PANEL (14) globulin, total 2.5 g/dL 1.5-4. 5 Not Available [facility] ([facility]) [address] [facility] [place], [address], 11/22/2024 06:13:03 11/19/19 25 11/19/2024 COMP. METAB OLIC PANEL (14) bilirubin, total 0.9 mg/dL 0.0-1. 2 normal Not Available [facility] ([facility]) [address] [facility] [place], [address], 11/22/2024 06:13:03 11/19/19 25 11/19/2024 COMP. METAB OLIC PANEL (14) alkaline phosphatase 69 IU/L 44-121 normal Not Available [facility] ([facility]) [address] [facility] [place], [address], 11/22/2024 06:13:03 11/19/19 25 11/19/2024 COMP. METAB OLIC PANEL (14) ALT (SGPT) 72 IU/L 0-32 above high normal Not Available [facility] ([facility]) [address] [facility] [place], [address], 11/22/2024 06:13:03 11/19/19 25 11/19/2024 LIPID PANEL cholesterol, total 184 mg/dL 100-19 9 normal Not Available [facility] ([facility]) [address] [facility] [place], [address], 11/22/2024 06:13:04 11/19/19 25 11/19/2024 LIPID PANEL triglyceride s 338 mg/dL 0-149 above high normal Not Available [facility] ([facility]) [address] [place], [address], 11/22/2024 06:13:04 11/19/19 25 11/19/2024 LIPID PANEL HDL cholesterol 56 mg/dL >39 normal Not Available [facility] ([facility]) [address] [place], [address], 11/22/2024 06:13:04 11/19/19 25 11/19/2024 LIPID PANEL VLDL cholesterol wong 54 mg/dL 5-40 above high normal Not Available [facility] ([facility]) [address] [place], [address], 11/22/2024 06:13:04 11/19/19 25 11/19/2024 LIPID PANEL LDL chol calc ([facility]) 74 mg/dL 0-99 Not Available [facility] ([facility]) [address] [place], [address], 11/22/2024 06:13:04 11/19/19 25 11/19/2024 LIPID PANEL LDL calc comment: SEAL MIXING OPERATOR Not Available [facility] ([facility]) [address] [place], [address], 11/22/2024 06:13:04 11/19/19 25 11/19/2024 IRON AND TIBC iron bind.cap.(TI BC) 428 ug/dL 250-45 0 normal Not Available [facility] ([facility]) [address] [place], [address], 11/22/2024 06:13:04 11/19/19 25 11/19/2024 IRON AND TIBC UIBC 345 ug/dL 118-36 9 normal Not Available [facility] ([facility]) [address] [place], [address], 11/22/2024 06:13:04 11/19/1911/19/2024 IRON AND TIBC iron 83 ug/dL 27-139 normal Not Available [facility] ([facility]) [address] [place], [address], 11/22/2024 06:13:04 11/19/1911/19/2024 IRON AND TIBC iron saturation 19 % 15-55 normal Not Available [facility] ([facility]) [address] [place], [address], 11/22/2024 06:13:04 11/19/1911/18/2024 HEMOG LOBIN A1C hemoglobin A1C 5.6 % 4.8-5. 6 normal Predi abete s: 5.7 - 6.4 Diabe jay: >6.4 Glyce twan contr ol for adult s with diabe jay: <7.0 Not Available [facility] ([facility]) [address] [place], [address], 11/22/2024 06:13:05 11/19/19 25 11/22/2024 VITAM IN B6, PLASM A vitamin B6 16.0 ug/L 3.4-65 .2 normal Defic iency : <3.4 Adrianna nal: 3.4 - 5.1 Adequ ate: >5.1 Not Available [facility] ([facility]) [address] [facility], [place], [address], 11/22/2024 06:13:06 11/19/19 25 11/19/2024 VITAM IN D, 25-HY DROXY vitamin D, 25-hydroxy 36.6 NG/mL 30.0-1 00.0 Vitam in D defic iency has been defin ed by the Insti tute of Medic ine and an Endoc rine Socie ty pract ice guide line as a level of serum 25-OH vitam in D less than 20 ng/mL (1,2) . The Endoc rine Socie ty went on to furth er defin e vitam in D insuf ficie ncy as a level betwe en 21 and 29 ng/mL (2). 1. IOM (Inst itute of Medic ine). 2009. Dieta ry refer ence intak es for calci um and D. Desmond zavala [place]: [facility] Press . 2. Adam mcgee MF, Stephenie hannah [place], Del off-F enrikear i DILL, et al. Evalu ation , treat ment, and preve ntion of vitam in D defic iency : an Endoc rine Socie ty clini wong pract ice guide line. [facility]. 2010; 96(7) :1911 -30. Not Available [facility] ([facility]) [address] [facility], [place], [address], 11/22/2024 06:13:07 11/19/1911/19/2024 TSH RFX ON ABNOR MAL TO FREE T4 TSH 2.080 uIU/m L 0.450- 4.500 normal Not Available [facility] ([facility]) [address] [facility], [place], [address], 11/22/2024 06:13:07 11/19/19 25 11/19/2024 VITAM IN B12 vitamin B12 332 pg/mL 232-12 45 normal Not Available [facility] ([facility]) [address] [facility], [place], [address], 11/22/2024 06:13:08 11/19/1911/19/2024 JESSIKA TIN ferritin 36 NG/mL 15-150 normal Not Available [facility] ([facility]) [address] [facility], [place], [address], 11/22/2024 06:13:08 08/02/1908/01/2024 MAMMO , scree albert, digit al, bilat eral No observ ation record ed. [facility] [address], [place], [address], 11/15/2024 09:04:04 Result Notes None recorded. Problems Name Problem SNOMED Code Status Onset Date Resolution Date Notes Provider Name and Address Organization Details Recorded Time Hypercho lesterol emia 37663291 Active 9.20 - ascvd risk 4.3% FERNANDO Johnson, [facility] 2 11:33:56 Foot pain 84885938 Completed 03/02/2015 Gio Starkey MD [address] [address], [place], [address] , [facility] 3 14:47:22 Osteopen ia 980820388 Completed 03/21/2018 Gio Starkey MD [address] [address], [place], [address] , [facility] 8 08:11:10 Body mass index 30+ - obesity 003544566 Completed 02/25/2019 Gio Starkey MD [address] [address], [place], [address] , [facility] 5 09:16:34 Proteinu rosa 93267602 Completed 09/08/2022 Gio Starkey MD [address] [address], [place], [address] , [facility] 3 14:48:29 Disorder of skin 36301577 Completed 02/25/2019 Gio Starkey MD [address] [facility] [address], [place], [address] , [facility] 9 15:42:08 Patient status finding [id number] Completed 201201/21/2014 RECORDED 03/07/20 13 9:11AM BY CAPRI SOL MA, MARRYATI ON/ADDEN TANMAY Starkey MD [address] [facility] [address], [place], [address] , [facility] 6 22:20:54 Influenz a vaccine needed 86096742429 06 Completed 201201/21/2014 RECORDED 03/07/20 13 9:11AM BY CAPRI SOL MA, SARAH ON/ADDMIKE DUM Gio Starkey MD [address] [facility] [address], [place], [address] , [facility] 6 22:20:54 Screenin g for malignan t neoplasm of breast Completed 201201/21/2014 RECORDED 03/07/20 13 9:11AM BY CAPRI SOL MA, SARAH ON/JEREMIAH Starkey MD [address] [facility] [address], [place], [address] , [facility] 6 22:20:54 Renewal of prescrip tion Completed 201201/21/2014 RECORDED 03/07/20 13 9:11AM BY CAPRI SOL MA, SARAH ON/JEREMIAH Starkey MD [address] [facility] [address], [place], [address] , [facility] 6 22:20:54 Pain of joint of wrist 051906005 Completed 201201/21/2014 RECORDED 03/07/20 13 9:11AM BY CAPRI SOL MA, SARAH ON/JEREMIAH Starkey MD [address], [place], [address] , [facility] 6 22:20:54 Patient status finding [id number] Completed 201202/17/2014 RECORDED 03/07/20 13 9:11AM BY CAPRI SOL MA, SARAH ON/JEREMIAH Starkey MD [address], [place], [address] , [facility] 6 22:20:54 Renewal of prescrip tion Completed 201202/17/2014 RECORDED 03/07/20 13 9:11AM BY CAPRI SOL MA, SARAH ON/JEREMIAH Starkey MD [address] [address], [place], [address] , [facility] 6 22:20:54 Pain of joint of wrist 754709265 Completed 201202/17/2014 RECORDED 03/07/20 13 9:11AM BY CAPRI SOL MA, SARAH ON/JEREMIAH Starkey MD [address] [facility] [address], [place], [address] , [facility] 6 22:20:54 Child attentio n deficit disorder 746417809 Completed 201301/21/2014 STORY: JULIO CÉSAR BAUMAN; PRATIMAI ON: DOING WELL AND FOLLOWED BY PSYCH.; RECORDED 10/29/19 14 9:56AM BY GIO Willard MD, SARAH ON/JEREMIAH Starkey MD [address] [facility] [address], [place], [address] , [facility] 6 22:20:54 Constipa tion 93011127 Active 2013 Catherine Bradley MA [facility], [facility] 2 11:33:56 Adult health examinat ion Completed 201301/21/2014 IMPRESSI ON: IMMUNIZA TION STATUS UTD WILL SCREEN BASED ON RISK FACTORS. REGULAR DENTAL CARE AND SEATBELT USE ADVISED. DISTRACT ED DRIVING DISCUSSE D. ROUTINE REGISTERED NURSE HH CASE MANAGER CARE AND COLONOSC OPY UTD.; RECORDED 10/29/19 14 9:17AM BY CAPRI SOL MA, ANNOTATI ON/ADDEN DUM Gio Starkey MD [address] [address], [place], [address] , [facility] 6 22:20:54 Gastroes ophageal reflux disease 652529390 Active 2013 FERNANDO Johnson, [facility] 2 11:33:56 Essentia l hyperten nixon 40402535 Active 2013 FERNANDO Johnson [facility] 2 11:33:56 Anemia due to chronic blood loss 998706516 Active 2013 FERNANDO Johnson, [facility] 2 11:33:56 Obesity 833392603 Completed 201308/10/2016 IMPRESSI ON: POTENTIA L ADVERSE HEALTH CONSEQUE NCES DISCUSSE D AND UNDERSTO OD. INCREASE D PHYSICAL ACTIVITY AND HEALTHIE R DIETARY HABITS ADVISED. ; RECORDED 10/29/19 14 9:33AM BY CAPRI SOL MA, OFFICE VISIT Gio Starkey MD [address] [facility] [address], [place], [address] , [facility] 3 14:47:52 Disorder of bone and articula r cartilag e 171832801 Completed 201308/10/2016 DATE: 10/29/19 14; ; RECORDED 11/01/19 14 12:48PM BY GIO Willard MD, HISTORIC AL SUMMARY Gio Starkey MD [address] [address], [place], [address] , [facility] 7 15:24:03 Congenit al disease 46175224 Completed 201303/21/2018 IMPRESSI ON: FOLLOWED BY GI; RECORDED 10/29/19 14 9:33AM BY CAPRI SOL MA, OFFICE VISIT Gio Starkey MD [address] [facility] [address], [place], [address] , [facility] 8 08:13:12 Allergic rhinitis 02703093 Active 2013 Catherine Bradley MA null, [facility] 2 11:33:56 Heterozy gous thalasse rashida 50363404 Active 2013 Catherineneftali Bradley MA null, [facility] 2 11:33:56 Child attentio n deficit disorder 992234562 Completed 201302/17/2014 STORY: JULIO CÉSAR BAUMAN; IMPRESSI ON: DOING WELL AND FOLLOWED BY PSYCH.; RECORDED 10/29/19 14 9:56AM BY GIO Willard MD, ANNOTATI ON/ADDEN DUM Gio Starkey MD [address] [facility] [address], [place], [address] , [facility] 6 22:20:54 Screenin g for malignan t neoplasm of cervix Completed 201303/02/2015 RECORDED 11/08/19 14 11:07AM BY MICHELLE TOBAR, HISTORIC AL SUMMARY Gio Starkey MD [address] [facility] [address], [place], [address] , [facility] 6 22:20:54 Swelling of limb 34856368 Completed 201302/25/2019 Gio Starkey MD [address] [facility] [address], [place], [address] , [facility] 9 15:41:51 Screenin g for malignan t neoplasm of breast Completed 201303/02/2015 RECORDED 11/13/19 14 1:04PM BY MICHELLE TOBAR, HISTORIC AL SUMMARY Gio Starkey MD [address], [place], [address] , [facility] 6 22:20:54 Disorder of breast 32838108 Completed 201303/21/2018 RECORDED 11/15/19 14 9:20AM BY FERNANDO DELCID, HISTORIC AL SUMMARY Gio Starkey MD [address], [place], [address] , [facility] 8 08:13:07 Mammogra phy abnormal 656002086 Active 2013 STORY: LEFT, S/P BX AND CLIP PLACEMEN T-FIBROC YSTIC DISEASE/ PASH; FERNANDO Johnson, [facility] 2 11:33:56 Breast lump 32820620 Completed 201308/10/2016 RECORDED 12/18/19 14 3:27PM BY GIO Willard MD, ANNOTATI ON/ADDEN DUM Gio Starkey MD [address] [facility] [address], [place], [address] , [facility] 7 15:25:07 Fibrocys tic disease of breast 84611598 Active 2013 FERNANDO Johnson, [facility] 2 11:33:56 Iron deficien cy anemia 60317884 Completed 201405/18/2015 Gio Starkey MD [address] [facility] [address], [address] , [facility] 5 09:33:51 Neurocut aneous syndrome 85784083 Completed 201405/18/2015 FERNANDO Johnson, [facility] 2 11:33:56 Hepatiti s C antibody detected 727785358 Active 2016 FERNANDO Johnson, [facility] 2 11:33:56 Osteoart hritis of joint of hand 82258875 Active 2016 Catherine Bradley MA null, [facility] 2 11:33:55 Iron deficien cy anemia due to blood loss 948916377 Completed 201611/25/2024 Gio Starkey MD [address] [facility] [address], [place], [address] , [facility] 5 09:33:38 Polyp of colon 20024801 Active 2016 Justine castro [facility] 9 08:54:30 Gastric polyp 40858524 Active 2016 Justine castro [facility] 9 08:54:30 Plantar fasciiti s 212320678 Completed 201709/08/2022 Gio Starkey MD [address], [place], [address] , [facility] 3 14:47:59 Foot pain 69849921 Completed 201709/08/2022 Gio Starkey MD [address] [facility] [address], [address] , [facility] 3 14:47:22 Sheryl nicole plantar fasciiti s [id number] 296075 Completed 201709/08/2022 Gio Starkey MD [address] [facility] [address], [address] , [facility] 3 14:44:05 Tendinit is of foot 819766844 Completed 201702/15/2018 sheryl Starkey MD [address] [facility] [address], [address] , [facility] 8 08:57:59 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 2017 FERNANDO Johnson, [facility] 2 11:33:55 Osteoart hritis 202864438 Active 2017 FERNANDO Johnson, [facility] 2 11:33:56 Insomnia 715492175 Active 2018 FERNANDO Johnson, [facility] 2 11:33:56 Liver enzymes level above referenc e range 556495389 Completed 201804/06/2021 Gio Starkey MD [address], [place], [address] , [facility] 1 13:00:07 Complain ing of - melena Completed 201909/08/2022 Gio Starkey MD [address], [place], [address] , [facility] 3 14:45:36 Excessiv e belching 470200107 Completed 201909/08/2022 Gio Starkey MD [address], [place], [address] , [facility] 3 14:47:12 Depressi ve disorder 05096943 Active 2019 FERNANDO Johnson, [facility] 2 11:33:55 Steatoti c liver disease 054290589 Active 2020 FERNANDO Johnson, [facility] 2 11:33:56 Cholelit hiasis without obstruct ion 72396870 Active 2020 FERNANDO Johnson, [facility] 2 11:33:56 Gallston e 720815556 Active 2020 FERNANDO Johnson, [facility] 2 11:33:56 Electroc ardiogra m abnormal 157355686 Active 2020 FERNANDO Johnson, [facility] 2 11:33:56 Mitral valve regurgit ation 28794562 Active 2020 trivial FERNANDO Johnson, [facility] 2 11:33:56 Intussus ception of colon 94689505 Completed 202109/08/2022 Gio Starkey MD [address] [address], [place], [address] , [facility] 3 14:47:33 Osteopor osis 15634768 Active 2021 FERNANDO Johnson, [facility] 2 11:33:56 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, needs regular GI/pancr eatic cancer screenin julia Starkey MD [address] [facility] [address], [place], [address] , [facility] 4 12:40:42 Obese class II 96898308566 4105 Completed 202109/08/2022 Gio Starkey MD [address], [place], [address] , [facility] 3 14:47:49 Adhesion of intestin e 65559840 Active 2021 FERNANDO Johnson, [facility] 2 11:33:56 Iron deficien cy anemia 56356043 Completed 202111/25/2024 Gio Starkey MD [address] [address], [place], [address] , [facility] 5 09:33:51 History of SARS-CoV -2 56060257662 1350241 Active 2021 Gio Starkey MD [address], [place], [address] , [facility] 2 13:41:42 Ostomy patient problem 177853974 Completed 202111/25/2024 Gio Starkey MD [address], [place], [address] , [facility] 5 09:34:02 Small bowel obstruct ion 050543232 Completed 202109/08/2022 Gio Starkey MD [address], [place], [address] , [facility] 3 14:48:04 Abscess of liver 00519410 Completed 202111/25/2024 Gio Starkey MD [address], [place], [address] , [facility] 5 09:32:28 CLABSI - central line associat ed bloodstr eam infectio n 613051303 Completed 202109/08/2022 Gio Starkey MD [address], [place], [address] , [facility] 3 14:45:22 Total parenter al nutritio n Completed 202111/15/2023 Eriberto Mcknight PA-C [address] [facility] [address], [place], [address] , [facility] 4 16:52:59 Short bowel syndrome 51774534 Active 2021 Gio Starkey MD [address] [facility] [address], [place], [address] , [facility] 2 13:18:11 Ileostom y present 071536418 Active 2022 Gio Starkey MD [address] [facility] [address], [place], [address] , [facility] 3 11:33:33 History of liver disease 775067292 Active 2022 Gio Starkey MD [address] [facility] [address], [place], [address] , [facility] 3 14:43:40 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, in partial remissio n 99994236 Active 2023 Eriberto Mcknight PA-C [address] [facility] [address], [place], [address] , [facility] 4 17:00:36 Perioral dermatit is 055529766 Completed 202311/25/2024 Gio Starkey MD [address], [place] [place], [address] , [facility] 5 09:34:10 Chronic hiccup 584093616 Active 2024 Gio Starkey MD [address] [facility] [address], [place], [address] , [facility] 5 09:14:34 Body mass index 30+ - obesity 883389795 Active 2024 Gio Starkey MD [address] [facility] [address], [place], [address] , [facility] 5 09:16:34 Hiccough s 85183703 Completed 202411/25/2024 Gio Starkey MD [address] [facility] [address], [place], [address] , [facility] 5 09:33:36 Microcyt osis 924805726 Active 2024 Gio Starkey MD [address] [facility] [address], [place], [address] , [facility] 5 09:25:05 Problem Notes None recorded. Procedures Surgical History Date Name Laterality Status Provider Name and Address Organization Details Recorded Time 10/03 Date of Last Colonoscopy completed Paty smith MA [facility] 4 16:24:50 10/03 Egd diagnostic brush wash completed Eugenio Tim [facility] 4 10:05:25 10/03 Colonoscopy completed Gio Starkey MD [address] [facility] [address], [place], [address] , [facility] 4 12:39:35 02/07 injection of cortisone completed Paty smith MA [facility] 4 16:24:57 08/24 Date of Last Pap Smear completed Vee Tim [facility] 3 09:23:21 05/31 Most Recent Mammogram completed Vee Tim [facility] 3 15:09:51 03/15 laparotomy completed Gio Starkey MD [address] [facility] [address], [place], [address] , [facility] 2 12:47:38 03/03 laparotomy completed Gio Starkey MD [address] [facility] [address], [place], [address] , [facility] 2 12:30:20 03/02 exploratory laparotomy completed Gio Starkey MD [address] [facility] [address], [place], [address] , [facility] 2 22:02:40 02/28 Laparotomy completed Gio Starkey MD [address], [place], [address] , [facility] 2 06:44:48 10/18 small intestine excision completed Gio Starkey MD [address], [place], [address] , [facility] 2 20:58:31 10/18 Laparoscopy completed Gio Starkey MD [address], [place], [address] , [facility] 2 09:01:00 02/04 Small bowel endoscopy completed Justine Pena [facility] 1 15:00:08 10/27 Echo transthoracic completed Gio Starkey MD [address] [facility] [address], [place], [address] , [facility] 1 20:43:58 08/06 esophagogastroduodenoscopy completed Joyce Pena [facility] 1 13:54:52 05/28 Mammogram screening completed Justine Pena [facility] 0 15:05:03 04/11 Colonoscopy & polypectomy completed Pedro Ch [facility] 0 11:22:14 10/18 MRI of bilateral breasts completed Marcos Ch [facility] 9 12:59:04 03/07 Most Recent Bone Density completed Capri Sol MA [facility] 9 15:14:53 03/07 Dxa bone density dinora vrt fx completed Jewels Sol MA [facility] 9 15:14:31 12/03 Breast Biopsy completed Gio Starkey MD [address], [place], [address] , [facility] 9 06:32:08 07/10 Oophorectomy completed Paty smith MA [facility] 4 08:39:59 Imaging Results None recorded. Procedure Notes None recorded. Medical Equipment None Reported. Allergies Allergen ID Allergen Name Allergen Category Reaction Reaction Severity Criticality Documentation Date Start Date Code Code System Note Provider Name and Address Organization Details Recorded Time 4217 latex environme nt,medica tion Not available Not available Not available 01/21/20142012 13980 91 RxNorm FERNANDO Barnes [facility] 2 12:58:47 82028 polyethyl dot glycols medicatio n Not available Not available Not available 11/15/2023 8516 RxNorm FERNANDO Zelaya [facility] 4 16:13:34 Medications Name Sig Start Date [...] e 50 mcg/actua tion nasal spray,fidel pension [place] 1 spray every day by nasal route [...] 08/10 completed RECORDED 11/16/19 14 12:16PM BY GIO Willard MD, ANNOTATI ON/JEREMIAH DUM;PT ASKED FOR BLACK STOCKING S Not [...] height Body mass index (BMI) Body weight Heart rate Oxygen saturation Body temperature Systolic And Diastolic Provider Name and Address Organization Details Last Updated DateTime 4 157.48 cm 36 kg/m2 86518.7 g 88 /min 97 % 97.7 [degF] 131/81 mm[Hg] Paty covington MA [facility] 4 16:12:52 Date Recorded Body height Body mass index (BMI) Body weight Oxygen saturation Heart rate Body temperature Systolic And Diastolic Provider Name and Address Organization Details Last Updated DateTime 5 157.48 cm 35.3 kg/m2 00687.0 3 g 98 % 94 /min 97.2 [degF] 154/85 mm[Hg] Julianna Dickerson MA [facility] 5 08:43:50 Date Recorded Body height Body mass index (BMI) Body weight Heart rate Oxygen saturation Body temperature Systolic And Diastolic Provider Name and Address Organization Details Last Updated DateTime 3 157.48 cm 33.9 kg/m2 66126.2 9 g 86 /min 98 % 96.7 [degF] 137/82 mm[Hg] Catherine Bradley MA [facility] 3 15:33:37 Date Recorded Body height Body mass index (BMI) Body weight Oxygen saturation Heart rate Body temperature Systolic And Diastolic Systolic And Diastolic Provider Name and Address Organization Details Last Updated DateTime 5 157.48 cm 35.5 kg/m2 73211.6 2 g 98 % 82 /min 97.5 [degF] 165/93 mm[Hg] 163/82 mm[Hg] Julianna Dickerson MA [facility] 5 15:25:18 Date Recorded Body height Body mass index (BMI) Body weight Heart rate Oxygen saturation Body temperature Systolic And Diastolic Provider Name and Address Organization Details Last Updated DateTime 4 157.48 cm 34.9 kg/m2 73979.1 4 g 101 /min 96 % 97.4 [degF] 130/80 mm[Hg] Karly Cam MA [facility] 4 15:35:15 Social History Question Answer Notes LastModified by Organizat ion Details LastModified Time Tobacco Smoking Status Never Smoker Not Available [facility] 05/12/2020 03:36:38 Do You Have An Advance Directive? Yes HCP/ -Simin rles Information not available 05/02/2022 Is Blood Transfusion Acceptable In An Emergency? Yes [id number] Information not available 05/12/2020 What Is Your Level Of Caffeine Consumption? Occasional 1 Tea Daily Information not available 11/15/2023 How Much Tobacco Do You Chew? None [id number] Information not available 05/12/2020 What Type Of Diet Are You Following? REGULAR Not Much Fruits/vegg ies Information not available 11/15/2023 Which Illicit Or Recreational Drugs Have You Used? None [id number] Information not available 05/12/2020 Live Alone Or [...] Or Greater Than 100 Degrees Fahrenheit? No [email or web address] Information not available 03/11/2020 Are You Or Anyone In Your Household A Health Care Provider Or Emergency Responder? No [email or web address] Information not available 03/11/2020 To The Best Of Your Knowledge Have You Been In Close Proximity To Any Individual Who Tested Positive For COVID-19? No Information not available 03/11/2020 *AWV ONLY* Are [...] Of Your Most Recent Tobacco Screening? 11/15/2024 [email or web address] Information not available 11/15/2024 How Many Children Do You Have? 1 Presley [id number] Information not available 05/12/2020 Do You Use Protection During Sex? No [id number] Information not available 05/12/2020 Do You Use Your Seat Belt Or Car Seat Routinely? Yes Information not available 03/30/2021 Seat Belts Used Routinely Yes Information not available 05/02/2022 Are You Sexually Active? No Brian Information not available 11/15/2023 Smoke Alarm In Home Yes Information not available 05/02/2022 Do You Have Smoke And Carbon Monoxide Detectors In Your Home? Yes Information not available 03/30/2021 At What Age Did You Start Smoking Tobacco? 1 [id number] Information not available 05/12/2020 Are You Passively Exposed To Smoke? No Information not available 01/03/2018 How Much Tobacco Do You Smoke? No [id number] Information not available 05/12/2020 Do You Use Sunscreen Routinely? Yes [id number] Information not available 05/12/2020 How Many Years Have You Smoked Tobacco? 0 [id number] Information not available 05/12/2020 Sex: Unknown Functional [...] used smokeless tobacco? 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 YESWOREST Information not available 05/02/2022 Are you able to care for yourself independently? Yes [id number] Information not available 05/12/2020 What is your occupation? [employer] Information not available 11/15/2023 Do you or [...] Y Polyps Y Acid Reflux (GERD) Y Depression Y GI Problems Y Gynecological History Statement/Question Response Abnormal Pap Y Date of Last Pap Smear 08/24/2022 Date of Last Colonoscopy 10/04/2023 Most Recent Mammogram 05/31/2022 Most Recent Bone Density 03/07/2018 Obstetrics History GPAL:G 0 P 0 0 0 0 Immunizations Vaccine Type Date Status Note Provider Nam e and Address Organization Details Recorded Time zoster recombinant 9 completed FERNANDO Barnes [facility] 01/21/2022 13:27:17 COVID-19, mRNA, LNP-S, PF, 30 mcg/0.3 mL dose 1 [facility]10[facility]21 14:23:22 COVID-19, mRNA, LNP-S, PF, 30 mcg/0.3 mL dose 1 completed FERNANDO Tello, [facility] 12/10/2021 14:23:22 Influenza, split virus, quadrivalent, PF 1 completed FERNANDO Tello, [facility] 12/10/2021 14:23:22 Influenza, MDCK, quadrivalent, PF 8 completed FERNANDO Tello, [facility] 12/10/2021 14:23:22 Influenza, split virus, quadrivalent, PF 0 completed FERNANDO Tello, [facility] 12/10/2021 14:23:22 zoster recombinant 9 completed FERNANDO Tello, [facility] 12/10/2021 14:23:22 Tdap 8 completed FERNANDO Tello, [facility] 12/10/2021 14:23:22 Influenza, split virus, quadrivalent, PF 7 completed FERNANDO Tello, [facility] 12/10/2021 14:23:22 Td (adult), 2 Lf tetanus toxoid, preservative free, adsorbed 1 completed FERNANDO Barnes, [facility] 01/21/2022 13:27:18 Influenza, split virus, quadrivalent, PF 2 completed FERNANDO Johnson, [facility] 06/30/2022 12:50:34 Influenza, split virus, quadrivalent, PF 3 completed FERNANDO Murrieta, [facility] 11/15/2023 16:13:10 Influenza, split virus, trivalent, PF 4 completed Not Available [facility] 03/27/2025 15:14:13 Pneumococcal conjugate PCV21, polysaccharide [id number] conjugate, PF 5 completed Justine castro, [facility] 12/17/2024 11:18:43 Tdap 1 completed Not Available [facility] 10/22/2021 17:17:55 Td (adult), 2 Lf tetanus toxoid, preservative free, adsorbed 1 completed Not Available [facility] 10/22/2021 17:17:55 Influenza, split virus, trivalent, preservative 3 completed Not Available [facility] 10/22/2021 17:17:55 Influenza, split virus, trivalent, preservative 3 completed Not Available [facility] 10/22/2021 17:17:55 Influenza, split virus, trivalent, PF 4 completed Not Available formerly [facility] 07/27/2019 02:21:57 Past Encounters Encounter ID Performer Location Encounter Start Date Encounter Closed Date Diagnosis/Indication Diagnosis SNOMED-CT Code Diagnosis ICD10 Code Diagnosis IMO Codes Diagnosis Note [id number] autoEComm erce [address] [facility] [place] [address] 08/13/2012 00:00:00 [id number] autoEComm erce [address] [facility] [place] [address] 01/15/2013 00:00:00 [id number] autoEComm erce [address] [facility] [address] [place] [address] 03/07/2013 00:00:00 [id number] autoEComm erce [address] [facility] [place] [address] 10/28/2013 00:00:00 [id number] Gio Starkey MD Main Office [address] [facility] [address] [place] [address] 05/02/2014 08:08:49 05/02/2014 09:05:51 Essential hypertension 95331296 Well controlled . Needs to work on diet and exercise. Depressive disorder 35260832 Needs infl uenza immunization 511525350 Hypercholesterolemia 81102304 Reassess in the Spring. TLC discussed. Foot pain 81497355 Gastroesop hageal reflux disease 477986099 Well controlled on thios regimen withour warning signs. Continue current regimen. [id number] Gio Starkey MD Main Office [address] [place] [address] 03/02/2015 10:04:45 03/02/2015 11:36:25 Adult health examination 026289966 Immunizati on status utd, flu advised in the Fall. Will screen based on risk factors. Breast, colon and cervical cancer screening utd. Regular dental and ophtho care advised as well as seat belt and sunscreen use. Distracted driving discussed. Advance directives in place. Body mass index 30+ - obesity 925234412 Gastroesop hageal reflux disease 964036387 Well controlled on thios regimen withour warning signs. Continue current regimen. Osteopenia 298934252 Essential hypertension 03607342 Well controlled . Needs to work on diet and exercise. Proteinuria 43473857 Noted only n recent UA. Will confirm and evaluate further if persistent . Disorder of skin 46069036 Symptomati c lesions. Will refer to derm for further treatment options. [id number] Jovani Prince MD Main Office [address] [address] [place] [address] 04/11/2016 14:11:43 04/11/2016 15:07:43 Allergic rhinitis 55777766 J30.9 Doubt a bacterial infection. Sounds like seasonal allergies since she gets this yearly (she is resistant to the dx). No abx. She will restart flonase and continue with mucinex D and hold the nyquil. Headache 59197345 R51 This may be muscular secondary to coughing and has already improved. [id number] Gio Starkey MD Main Office [address] [place] [address] 08/10/2016 14:36:08 08/10/2016 15:51:50 Adult health examination 250876376 Z00.01 Immunizati on status utd, flu advised in the Fall. Will screen based on risk factors. Breast, colon and cervical cancer screening utd. Regular dental and ophtho care advised as well as seat belt and sunscreen use. Distracted driving discussed. Advance directives in place. Body mass index 30+ - obesity 161955728 E66.01 Z68.35 Knee pain 09143921 M25.5 61 M25.562 Acute dermatitis 9193950 6 L30.9 Hypercholesterolemia 136 76687 E78.01 Reassess in the Spring. TLC discussed. Heterozygo us thalassemia 14626568 D56.3 CBC being monitored by GI. Proteinuria 64835331 R80 .9 Noted only n recent UA. Will confirm and evaluate further if persistent . Osteopenia 891366458 M85 .89 Depressive disorder 3548 9007 F32.0 Stable/wel l controlled on SSRI. Continue current regimen. Peutz-Jegh ers syndrome 88867864 Q85.8 Following with GI and having regular colonoscop ies/polype ctomies. Essential hypertension 08714872 I10 Well controlled . Needs to work on diet and exercise. [id number] Gio Starkey MD Main Office [address] [facility] [address] [facility] [place] [address] 03/10/2017 15:15:11 03/10/2017 16:05:29 Essential hypertension 88703578 I10 Well controlled . Needs to work on diet and exercise. Depressive disorder 3548 9007 F32.0 Stable/wel l controlled on SSRI. Continue current regimen. Hypercholesterolemia 136 35920 E78.01 Reassess in the Spring. TLC discussed. Gastroesop hageal reflux disease 799947607 K21.0 Well controlled on this regimen without warning signs. Continue current regimen. Insomnia 510360736 G47.0 0 See if trazodone helps. Would prefer to avoid hypnotic. Pain of mu ltiple joints 09595804 M25.50 Likely OA. Recent vit D level was normal. Screen for possible inflammato ry/reactiv e arthritis. Proteinuria 44775030 R80 .9 Noted only n recent UA. Will confirm and evaluate further if persistent . [id number] TY Jones Main Office [address] [facility] [place] [address] 10/23/2017 14:24:38 10/23/2017 15:09:19 Pre-surgery evaluation 922149384 Z01.818 scheduled for endoscopy 11/09 with Rm Lamb risk score 0.71%- low cardiac risk for surgery, EKG no acute abnormalit y, labs pending, no further work-up necessary, should proceed as scheduled Gastric polyposis 453954 09 K31.7 hx of, has endoscopie s every 2-3 months. Essential hypertension 85624389 I10 BP well controlled [id number] Eriberto Mcknight PA-C Main Office [address] [facility] [address] [place] [address] 01/03/2018 08:57:12 01/03/2018 10:13:38 Ankle pain 411528922 M25.572 M25.571 Pruritic rash 71508704 L 28.2 more so on B elbows - plaque/mil dly scaley, but diffuse mac/pap on ankles/low er legs c heat - see below Pain of mu ltiple joints 28601167 M25.50 ankles today >> fingers/dill nds --- suspicious for psoriatic arthritis - will check labs and get rheum eval meanwhile - will initially rx c pred pulse advised pt to go to ER if develop f/c and worse joint pain Psoriasis with arthropathy 90398575 L40.50 see above - suspicious for psoriatic arthritis Iron defic iency anemia 71625076 D50.9 [id number] Gio Starkey MD Main Office [address] [address] [place] [address] 02/15/2018 08:27:06 02/15/2018 09:23:57 Adult health examination 046071563 Z00.00 Immunizati on status utd, flu advised in the Fall. Will screen based on risk factors. Breast, colon and cervical cancer screening utd. Regular dental and ophtho care advised as well as seat belt and sunscreen use. Distracted driving discussed. Advance directives in place. Peutz-Jegh ers syndrome 62051545 Q85.8 Following with GI and having regular colonoscop ies/polype ctomies. Body mass index 30+ - obesity 716653732 E66.01 Z68.37 Depressive disorder 3548 9007 F32.0 Stable/wel l controlled on SSRI. Continue current regimen. Hypercholesterolemia 136 09809 E78.01 Reassess CVD risk score and discuss mgmt based on results. TLC discussed. Heterozygo us thalassemia 00060903 D56.3 CBC being monitored by heme Osteopenia 339869451 M85 .89 Due for f/u study this year. Regular weight bearing exercise discussed. Essential hypertension 67712514 I10 Well controlled . Needs to work on diet and exercise. Varicella vaccination 68 288991 Z23 Mammography abnormal 168 538046 R92.8 [id number] Eriberto Mcknight PA-C Main Office [address] [facility] [address] [place] [address] 03/21/2018 13:50:18 03/21/2018 14:57:35 Acute dermatitis 85527923 L30.9 pt states uses monet cream infreq - asks for refill Patient en counter status 982375241 Z01.818 Peutz-Jegh ers syndrome 46853487 Q85.8 Pain of mu ltiple joints 93627618 M25.50 seen by rheum, neg w/u, cont f/u as dir Loss of se nse of smell 08402933 R43.0 c/o x few months - is on flonase daily, rec. add nasal saline spray prior and prn as well - will send to ent for eval Heterozygo us thalassemia 75676053 D56.3 cont f/u c hem Essential hypertension 63869025 I10 stable, cont meds as dir Pure hyperglyceridemia 784965400 E78.1 rec less carbs, cont flaxseed oil [id number] Gio Starkey MD Main Office [address] [facility] [address] [place] [address] 10/03/2018 14:22:33 10/03/2018 15:48:06 Essential hypertension 53545713 I10 stable, cont meds as dir, check bmp Depressive disorder 3548 9007 F32.9 ~ stable, cont med as dir, seen by counsellor yrs ago - declines seeing them again Osteoporosis 82850557 M8 1.0 cont f/u c endo Bilateral plantar fasciitis 2045433729 7351641 M72.2 rec am bath towel stretch Angular cheilitis 535069 005 K13.0 no sig help c chapstick and recent use of steroid cream 1% --- trial c bactroban, then resume chapstick as dir Varicose v eins of lower extremity 76939265 I83.93 consider comp socks 15-20mmHg from [employer] [id number] Gio Starkey MD Main Office [address] [facility] [address] [place] [address] 02/25/2019 14:48:08 02/25/2019 16:04:52 Adult health examination 997407266 Z00.00 Immunizati on status utd, flu advised in the Fall and Shingrix via local pharmacy. Will screen based on risk factors. Breast, colon and cervical cancer screening utd. Regular dental and ophtho care advised as well as seat belt and sunscreen use. Distracted driving discussed. Advance directives in place. Osteoporosis 20573321 M8 1.0 Getting Reclast via plumbing inspector Varicella vaccination 68 362425 Z23 Screening for malignant neoplasm of breast 078499689 Z12.39 Swelling of eyelid 11774 7004 R22.0 Possible hordeolum vs blephariti s. Will see if warm compress and course of abx oint helps. Call inb/worse. Peutz-Jegh ers syndrome 75311760 Q85.8 Following with GI and having regular colonoscop ies/polype ctomies. Body mass index 30+ - obesity 039380531 E66.01 Z68.37 Depressive disorder 3548 9007 F32.0 Stable/wel l controlled on SSRI. Continue current regimen. Essential hypertension 54081490 I10 Well controlled . Needs to work on diet and exercise. Hypercholesterolemia 136 02297 E78.01 Reassess CVD risk score and discuss mgmt based on results. TLC discussed. Heterozygo us thalassemia 75747606 D56.3 CBC being monitored by heme Mammography abnormal 168 104252 R92.8 Has care establishe d at the breast center. [id number] Gio Starkey MD Main Office [address] [facility] [address] [place] [address] 03/28/2019 15:38:22 03/28/2019 16:46:51 Pre-surgery evaluation 411709733 Z01.818 EKG normal, patient had a cbc Dr Stallworth's office, CMP normal here recently. Patient is at low risk for cardiopulm onary complicati ons with planned procedure based on comorbidit ies, good exertional tolerance and overall procedure risk. Patient advised to avoid aspirin for 14 days and NSAIDS for 7 days prior. May proceed to scheduled surgery as planned Essential hypertension 45867160 I10 Peutz-Jegh ers syndrome 08753255 Q85.8 [id number] Gio Starkey MD Main Office [address] [facility] [address] [place] [address] 03/11/2020 09:49:11 03/11/2020 11:12:54 Adult health examination 107712576 Z00.00 next mammo later this yr, cont f/u c plumbing inspector re: pap -- is utd Osteoporosis 09365548 M8 1.0 Getting Reclast via plumbing inspector - cont as dir, cont vit d as dir Peutz-Jegh ers syndrome 36204430 Q85.8 Following with GI and having regular colonoscop ies/polype ctomies, cont ppi as dir Body mass index 30+ - obesity 180927227 E66.01 Z68.35 Depressive disorder 3548 9007 F32.0 Stable/wel l controlled on SSRI. Continue current regimen. Essential hypertension 60986951 I10 stable, cont meds as dir Hypercholesterolemia 136 50701 E78.01 Reassess CVD risk score and discuss mgmt based on results. TLC discussed. Heterozygo us thalassemia 64593664 D56.3 CBC being monitored by jay marina - melena 027960002 K92.1 she already called gi to get seen - pending call back - encouraged her to call them again - meanwhile, has pending iron infusion - see below Excessive belching 18390 7000 R14.2 cont ppi as dir, has tried gas-x in past c little help, will try rx strength and see above re: gi f/u also cont probiotic Iron defic iency anemia 51158056 D50.9 pt states had recent labwork thru hem/onc - has pending iron infusion tomorrow and next wk Hypomagnesemia 526523789 E83.42 Impaired f asting glycemia 026038770 R73.01 Ganglion c yst of right hand 8741538532 62888 M67.441 offered reassuranc e Ganglion of wrist 395656 009 M67.439 offered reassuranc e Tailor's b union of right foot 5085753024 317585 M21.621 Fatigue 14556795 R53.83 [id number] Gio Starkey MD Main Office [address] [place] [address] 03/30/2021 15:23:21 03/30/2021 16:28:21 Adult health examination 054634921 Z00.00 Immunizati on status updated, flu advised when available and Shingrix via local pharmacy. Will screen based on risk factors. Breast, colon and cervical cancer screening utd. Regular dental and ophtho care advised as well as seat belt and sunscreen use. Distracted driving discussed. Advance directives in place. Varicella vaccination 68 954916 Z23 Depressive disorder 3548 9007 F32.0 Stable/wel l controlled on SSRI. Continue current regimen. Essential hypertension 51781699 I10 Well controlled . Needs to work on diet and exercise. Screening for malignant neoplasm of breast 858892798 Z12.39 Screening for malignant neoplasm of cervix 477622550 Z12.4 Peutz-Jegh ers syndrome 59992524 Q85.8 Following with GI and having regular colonoscop ies/polype ctomies. Body mass index 30+ - obesity 607566371 E66.01 Z68.36 Osteoporosis 72234198 M8 1.0 Getting Reclast via endo, due for bnd 2021 Hypercholesterolemia 136 39690 E78.01 Reassess CVD risk score and discuss mgmt based on results. TLC discussed. Hyperhidro sis of axilla 128924103 L74.510 Requires a tetanus booster 259622314 Z23 Acute dermatitis 7802685 6 L30.9 Suspicious for eczema. Call inb/worse. [id number] Gio Starkey MD Main Office [address] [place] [address] [place] [address] 10/25/2021 10:26:46 10/25/2021 12:56:05 [id number] Gio Starkey MD Main Office [address] [address] [place] [address] 11/15/2021 11:28:48 11/15/2021 12:25:46 Essential hypertension 13475659 I10 stable bp and nl cr last month, cont meds as dir Depressive disorder 3548 9007 F32.0 Stable/wel l controlled on SSRI. Continue current regimen. Fatigue 07709033 R53.83 and nail changes and constipati on - check tsh Insomnia 488941114 G47.0 0 no sig help c melatonin 10mg a few hrs ac hs - no sig help c traz a few yrs ago - will give trial of low dose gbn ~ 1 hr ac hs - stop melatonin if gbn works well (rx for tid for more tabs) Iron defic iency anemia 34416728 D50.9 had iron infusion ac recent sx - will recheck labs [id number] Gio Starkey MD [facility] [address] [facility] [address] [place] [address] 12/10/2021 13:16:28 12/13/2021 11:42:15 Peutz-Jeghers syndrome 63392073 Q85.8 Following with GI and having regular colonoscop ies/polype ctomies. Cholelithi asis without obstruction 41474262 K80.20 Needs assessment to see if this is a factor in her recurring abd pain. Partial ob struction of small bowel 066760331 K56.690 Secondary to adhesions. Avoidance of constipati on advised. Gastroesop hageal reflux disease 449127815 K21.9 Less suspicious for PUD/gastri tis. Continnue PPI. [id number] Gio Starkey MD [facility] [address] [facility] [address] [place] [address] 01/21/2022 10:14:33 01/21/2022 16:06:11 Iron deficiency anemia 50999716 D50.9 Undergoes iron infusions yearly and recent testing was normal. Nausea 478358388 R11.0 Will try 8mg of ondansetro n and call for new rx if more effective. If persistent /worse will need further evaluation and follow up with GI. Gallstone 640588060 K80. 20 Question if this is affording symptoms but recent HIDA scan and labs bening normal works against this. Insomnia 771587632 G47.0 0 See if trazodone helps. Would prefer to avoid hypnotic. Peutz-Jegh ers syndrome 06149952 Q85.8 Following with GI and having regular colonoscop ies/polype ctomies. [id number] Gio Starkey MD Main Office [address] [facility] [address] [place] [address] 01/25/2022 10:36:54 01/25/2022 11:46:11 Tachycardia 3685901 R00.0 Most likely from dehydratio n. Needs labs and possibly ECG. Dehydration 80589027 E86 .0 Referred for urgent IVF. Abdominal pain 05911534 R10.9 Need to rule out recurrent bowel obstructio n vs gallstone disease (less likely). Based on current acute status ED eval advised. Pt wanted to drive herself (ambulance offered). She asked if [facility] or UC would be appropriat e and I counseled her otherwise. Expect called into [facility] ED. >50min spent obtaining history, physical evaluation and counseling pt on plan. History of bowel obstruction 8375171539 95317 Z87.19 Concern for recurrence and symptoms affording dehydratio n. Emergent eval recommende d after explaining to her that this left unaddresse d could result in sever consequenc es particular ly . Peutz-Jegh ers syndrome 38907716 Q85.8 Following with GI and having regular colonoscop ies/polype ctomies. Gallstone 761189650 K80. 20 Recent HIDA scan unremarkab le. Will need labs and imaging to confirm that this isn't the etiology of her pain. History of SARS-CoV-2 29 66449082 53998027 Z86.16 Recovered. [id number] Gio Starkey MD Main Office [address] [place] [address] [place] [address] 02/04/2022 10:49:35 02/04/2022 12:06:18 [id number] Gio Starkey MD Main Office [address] [place] [address] [place] [address] 04/28/2022 15:27:57 04/29/2022 09:08:50 [id number] Gio Starkey MD Main Office [address] [place] [address] [place] [address] 05/02/2022 12:48:05 05/02/2022 14:01:06 Needs influenza immunization 643574375 Z23 Abscess of liver 9946892 5 K75.0 Still on meropenem, no more drains. Does not have ID follow up yet. She will contact their office to arrange and let me know if there are any problems. Anemia due to chronic blood loss 455790406 D50.0 Unable to tolerate all forms of iron supplement ation. Working to get heme eval to arrange infusion. Presume that this is being monitored with her TPN labs. Essential hypertension 19996671 I10 BP low in context of weight loss and ostomy fluid loss. Will discontinu e. Ostomy pat ient problem 317230715 Z93.9 Working with [facility], maintainin g it well. Peutz-Jegh ers syndrome 30290137 Q85.89 Will need new GI specialist moving forward with Dr. Mccormick move to [place]. History of small bowel obstruction 7314824384 99479982 Z87.19 s/p laparatomy x4, symptoms improved and ileostomy in place. Following with surgery. Has CT scheduled prior to next appt. Total pare nteral nutrition 269870735 R63.2 Being managed by [facility]. Will defer duration decision to surgery. [id number] Gio Starkey MD Main Office [address] [facility] [address] [place] [address] 06/15/2022 08:15:23 06/15/2022 10:05:35 [id number] Gio Starkey MD Main Office [address] [facility] [address] [place] [address] 06/30/2022 12:43:34 06/30/2022 13:36:30 Essential hypertension 58243124 I10 Currently normotensi ve off of meds. Will monitor off of chlorthali done. Paresthesia of hand 3090 07128 R20.2 Screen for possible metabolic etiologies . CLABSI - c entral line associated bloodstream infection 508168113 T80.211D Resolved following PICC line removal. Now has Rivera in place for TPN. Total pare nteral nutrition 846830431 R63.[address] Simental (surgery) 07/05, dr Syd Brooks (GI 11/21), losing [facility] for home care and unclear as to who will be managing TPN orders/lab s. Will involve case mgmt. Short bowel syndrome 266 30036 K91.2 On TPN, assisted plan needs to be clarified with surgery and GI. Osteoarthr itis of joint of bilateral hands 4745681166 45155 M19.041 M19.042 Ileostomy present 023896 002 Z93.2 Working with [facility], maintainin g it well. Surgery and GI will need to monitor once [facility] services are d/c'd [id number] Gio Starkey MD Main Office [address] [facility] [address] [place] [address] 09/08/2022 14:06:42 09/08/2022 15:07:36 Adult health examination 992079362 Z00.00 Immunizati on status updated, flu advised when available and Shingrix via local pharmacy. Will screen based on risk factors. Breast, colon and cervical cancer screening utd. Regular dental and ophtho care advised as well as seat belt and sunscreen use. Distracted driving discussed. Advance directives in place. Anemia due to chronic blood loss 134341680 D50.0 Unable to tolerate all forms of iron supplement ation. Working to get heme eval to arrange infusion. Presume that this is being monitored with her TPN labs. Body mass index 30+ - obesity 405327299 Z68.30 E66.9 Ileostomy present 948922 002 Z93.2 Maintainin g it well. Iron defic iency anemia 35830149 D50.9 Has heme f/u scheduled in upcoming weeks. Insomnia 627988130 G47.0 0 Well controlled , continue current regimen. Peutz-Jegh ers syndrome 28726284 Q85.89 Has appt with new GI at [facility] in November. Short bowel syndrome 266 96950 K91.2 Last TPN done on 08/19/22 Steatotic liver disease 290935627 K76.0 Total pare nteral nutrition 286593634 R63.2 Having central line removed next week. Essential hypertension 25694902 I10 Has climbed with improved nutrition. Will resume previously tolerate diuretic. Pt will go for labs Depressive disorder 3548 9007 F32.0 Stable/wel l controlled on SSRI. Continue current regimen. [id number] Gio Starkey MD Main Office [address] [address] [place] [address] 01/12/2023 15:24:36 01/12/2023 16:10:42 Essential hypertension 83803920 I10 Fair control back on diuretic. Will continue current regimen. Depressive disorder 3548 9007 F32.0 Stable/wel l controlled on SSRI. Continue current regimen. [id number] Gio Starkey MD Main Office [address] [address] [place] [address] 11/15/2023 15:46:18 11/15/2023 17:12:29 Adult health examination 243707587 Z00.00 mammo / colon utd, pending see plumbing inspector for pap later this year Peutz-Jegh ers syndrome 93510164 Q85.89 fairly stable p colon mass/polyp removed, had recent egd/colon/ ileoscopy/ EUS - fairly stable - cont f/u c gi & medical onc Major depr ession single episode, in partial remission 01272475 F32.4 stable, cont med as dir, used to see therapist in past Essential hypertension 32050568 I10 stable bp, cont meds as dir Gastroesop hageal reflux disease 315028157 K21.9 stable on ppi bid, see below Hypercholesterolemia 136 73452 E78.01 Reassess CVD risk score and discuss mgmt based on results. TLC discussed. Osteoporosis 95310981 M8 1.0 Getting Reclast via plumbing inspector - cont as dir, cont vit d as dir Vitamin D deficiency 347 38973 E55.9 Body mass index 30+ - obesity 198959168 E66.9 Z68.36 Iron defic iency anemia 67472825 D50.9 had iron infusion ac sx - will recheck labs, cont f/u c hem Excessive belching 60666 7000 R14.2 cont ppi as dir, has tried gas-x in past c little help, will try rx strength and see above re: gi f/u also cont probiotic Fatigue 36542683 R53.83 Impaired f asting glycemia 020954087 R73.01 [id number] Gio Starkey MD Main Office [address] [facility] [address] [place] [address] 07/01/2024 15:20:20 07/01/2024 16:14:17 Perioral dermatitis 237384474 L71.0 Suspect infectious vs nutritiona l deficiency as cause. Advised to start Vit b and C supplement s and will try a course of doxy. Common/ser ious potential side effects discussed. Call inb/worse as derm referral and trial of low dose topical steroid would be next. [id number] Gio Starkey MD Main Office [address] [facility] [address] [place] [address] 11/15/2024 08:32:32 11/15/2024 09:44:17 Adult health examination 846307434 Z00.00 COVID booster, PCV20, Shingrix advised via local pharmacy. Will screen based on risk factors. Breast, colon and cervical cancer screening utd. Regular dental and ophtho care advised as well as seat belt and sunscreen use. Distracted driving discussed. Advance directives in place. Hypercholesterolemia 136 77793 E78.01 Reassess CVD risk score and discuss mgmt based on results. TLC discussed. Peutz-Jegh ers syndrome 45305456 Q85.89 fairly stable p colon mass/polyp removed, had recent egd/colon/ ileoscopy/ EUS - fairly stable - cont f/u c gi & medical onc Major depr ession single episode, in partial remission 79161872 F32.4 stable, cont med as dir, used to see therapist in past Essential hypertension 89189217 I10 stable bp, cont meds as dir Gastroesop hageal reflux disease 542280063 K21.9 stable on ppi bid, see below Osteoporosis 84730642 M8 1.0 Getting Reclast via plumbing inspector - cont as dir, cont vit d as dir Vitamin D deficiency 347 30352 E55.9 Getting Reclast via endo, overdue for bnd Body mass index 30+ - obesity 827884934 E66.9 Z68.35 920801 Iron defic iency anemia 33484838 D50.9 had iron infusion ac sx - will recheck labs, cont f/u c heme Fatigue 08663867 R53.83 Impaired f asting glycemia 010025841 R73.01 Ileostomy present 353568 002 Z93.2 Functionin g and maintainin g it well. Short bowel syndrome 266 79709 K91.2 GI deferring antidiarrh eal therapy to me. Steatotic liver disease 259484975 K76.0 Due for routine labs. Hiccoughs 37544128 R06.6 262612 Suspect that her chronic GI issues may be contributi ng to phrenic nerve/diap hragm dysfunctio n. Following with GI and being referred to [place]. Will try different muscle relaxant in the meantime. Gabapentin is another option. Administra tion of pneumococcal vaccine 03837260 Z23 Paresthesia of hand 3090 29431 R20.2 785656 Screen for possible metabolic etiologies . 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 Following with GI actively. 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 Will see if adding low dose gabapentin helps and consult neurology for further guidance. Wonder if CCB for BP might also help with possible esophageal dysmotilit y component. Essential hypertension 30862850 I10 Poor control on diuretic alone. Will see if CCB helps with this and her intractabl e singultus. Short bowel syndrome 266 71978 K91.2 Rx tolerated, renewed. Health Concerns Section Related Observation LastModified by Organization Detai ls LastModified Time None Recorded Concern Status LastModified by Organization Details LastModified Time None Recorded Advance Directives Directive Y: HCP/ -Brian Payers Insurance Date Sequence Insurance Name Policy Number Policy Morales Covered Member ID Morales Member ID Guarantor Name 10/02/2018 1 [facility] [id number] Brian Embury [id number] Mariel Carrie Embury 06/09/2025 1 [facility] [id number] Mariel L L Embury [id number] Mariel L Embury 11/14/2024 1 [facility] [id number] Mariel L Embury [id number] Mariel L Embury 07/01/2024 1 [facility] [id number] Brian Embury [id number] Mariel L Embury 05/02/2014 1 [facility] ([facility]) [id number] Brian Malone [id number] Mariel Yanezury 10/20/2017 1 [facility]: [facility] [id number] Brian Malone [id number] Mariel Malone Notes Date Note Type Note Provider Name and Address Organization Details Recorded Time 01/12/2023 text/html Hypertension F/UReported by PatientHPIFor lifestyle, patient reportsnot exercising regularlybut reportslimiting/avoidi ng salt. For associated symptoms, patient reportsno dizziness,no lightheadedness,no chest pain,no shortness of breath,no palpitations,no edema, andno calf pain with exertion. For medications, patient reportstaking medications as directed,no side effects from medication, andchecks blood pressure at home, range: (124-144/79-91).Tolera ting resumption of chlorthalidone well. Recent labs (07/13/22) showed normal renal function and lytes. Anxiety/DepressionRepo rted by PatientHPIFor context, patient reportsmajor life stressors. For quality, patient reportssymptoms improved. For severity, patient reportsdenies suicidal ideations. For associated symptoms, patient reportsdenies homicidal ideations. Gio Starkey MD [address] [address], [place], [address], [facility] 02/08/2023 20:52:29 11/15/2023 text/html Generic HPI TemplateReported by Patient here for annual pe. Eriberto Mcknight PA-C [address] [address], [place], [address], [facility] 11/15/2023 17:25:30 07/01/2024 text/html Having perioral irritation x 2 weeks ago. Multiple lesions none have healed since onset. Has short bowel syndrome and polyps which likely impact intestinal absorption. Takes a MVI. States that there is some exudate from the lesions and that lubrication has not been helping. Gio Starkey MD [address] [address], [place], [address], [facility] 07/01/2024 17:38:33 11/15/2024 text/html Generic HPI TemplateReported by PatientHere for a physical but presenting with multiple new acute complaints, including recalcitrant hiccups. Seeing dentist and ophtho regularly. Gio Starkey MD [address] [address], [place], [address], [facility] 11/25/2024 09:48:37 03/27/2025 text/html AnemiaReported b y PatientHPIFor context, [...] help manage this condition that i have ct scan special procedures technologist in addressing. Unfortunately this did not happen and she remains on baclofen with some reported benefit but still having significant symptoms. Tends to occur with worry/high stress situations including work. Gio Starkey MD [address] [address], [place], [address], [facility] 04/14/2025 06:57:53 OBGyn Episode No OBEpisode recorded.
--- OUTSIDE RECORDS SUMMARY | 2025-06-10 16:58 | XMS_ITS | Encounter Summary ---
Author Organization [facility] Address [address] [place] [address] Care Team Providers Care Trim Sawyer Name Role Phone Gio Muñoz Primary Care Provider [phone] Encounter Details Date Type Department Care Team (Late st Contact Info) Description 03/25/2020 Orders Only [facility] Xray [address] [place] [id number] Taco Ramirez MD [address] [place] [phone] Social History Tobacco Use Types Packs/Day Years [...] on filedocumented in this encounter Care Teams Trim Sawyer Relationship Specialty Start Date End Date Gio Muñoz [address] [facility] [address] [place] [phone] PCP - General 01/26/17 documented as of this encounter
== END 2025-06-10 15:49 | disposition home or self-care (01) ==
LOC: HO.HSM 15:16
PROVIDERS: PCP Pediatrics; Visit Provider Psychiatry & Neurology Neurology
DX: F95.2 Tourette's disorder (principal)
CPT/HCPCS: 99205